=== PATIENT | female | born 1945 | race Caucasian/White ===

== ENCOUNTER 2019-06-25 16:10 | Inpatient (IN) | payer OTHER, SELFPAY ==
[2019-06-16 10:42] VITALS: BP 136/81; PULSE 65; RESP 18; TEMP 36.7; O2SAT 94; BMI 33.4
[2019-06-25] VITALS (13 sets, daily range): BP systolic 127–159; BP diastolic 55–85; PULSE 65–86; RESP 11–18; TEMP 36.3–37; O2SAT 92–99
--- NOTE | ~2019-06-25 | XR_ITS ---
EXAMINATION: XR surgery orthopedic DATE: 06/25/2019 16:17 INDICATION: Intraoperative evaluation during right total hip arthroplasty TECHNIQUE: Frontal view of the right hip was obtained. COMPARISON: None. FINDINGS: Intraoperative image during a right total hip arthroplasty demonstrate placement of an acetabular com ponent affixed with at least 2 screws which appears in near anatomic alignment on the single image pr ovided. A femoral broach is in place with the proximal tip centered over the acetabular component. P ortions of the pelvis are obscured by a bolster. No fractures in the visualized bones. Expected gas a t the operative bed. IMPRESSION: 1. Expected appearance during right total hip arthroplasty. Reviewed, dictated and finalized at location A. OYMENT SUPERVISOR
--- NOTE | ~2019-06-25 | XR_ITS ---
EXAMINATION: XR hip RT min 2V DATE: 06/25/2019 16:16 INDICATION: Postoperative evaluation following right total hip arthroplasty TECHNIQUE: Anteroposterior and lateral views of the right hip were obtained. COMPARISON: Intraoperative radiograph dated 06/25/2019 at 1:32 PM FINDINGS: Interval completion of the noncemented right total hip arthroplasty which appears well seated in near anatomic alignment. Expected subcutaneous gas in the postoperative bed. No fractures identified. IMPRESSION: 1. Right total hip arthroplasty, negative for postoperative purposes. Reviewed, dictated and finalized at location A. STICS OFFICER
--- NOTE | 2019-06-25 10:25 | WPDANESEPPF ---
Anes - Initial Pre Proc Eval Procedure: Operation Date: 06/25/19 12:00 Proposed Procedures p Right Total Hip Arthroplasty - Phillip Mcmillan MD Date/Time: 06/25/19 10:25 Surgeon: Phillip Mcmillan MD Pre Op Diagnosis: Right Hip OA Patient Data Age: 73 Gender: F Height: 1.7 m Weight: 96.3 kg Last Vital Signs Temp 36.7 C 06/16/19 10:42 Pulse 65 06/16/19 10:42 Resp 18 06/16/19 10:42 BP 136/81 06/16/19 10:42 Pulse Ox 94 06/16/19 10:42 Allergies Allergy/AdvReac Type Severity Reaction Status Date / Time No Known Allergies Allergy Verified 06/25/19 10:06 Home Medications Medication Instructions Recorded Confirmed Type aspirin 81 mg tablet,delayed 81 mg PO DAILY 04/08/19 06/25/19 History release atorvastatin 80 mg tablet 80 mg PO HS 04/08/19 06/25/19 History calcium carbonate 600 mg calcium 600 mg PO BID 04/08/19 06/25/19 History (1,500 mg) tablet carvedilol 3.125 mg tablet 3.125 mg PO Q12H 04/08/19 06/25/19 History clopidogrel 75 mg tablet 75 mg PO DAILY 04/08/19 06/25/19 History lisinopril 10 mg tablet 10 mg PO DAILY 04/08/19 06/25/19 History multivitamin 1 tablet PO DAILY 04/08/19 06/25/19 History omega-3 fatty acids 1,000 mg 1,000 mg PO DAILY 04/08/19 06/25/19 History capsule trazodone 50 mg tablet 75 mg PO HS tablet 04/08/19 06/25/19 History oxybutynin chloride 5 mg tablet 5 mg PO BID #180 tablet 04/28/19 06/25/19 Rx ECG: Date of Service: 06/16/19 Procedure(s): CA 12 lead EKG Accession Number(s): [id number] cc: ~ Measurements Intervals [place] Rate: 64 P: 36 CO: 184 QRS: -11 QRSD: 92 T: 2 QT: 404 QTc: 419 Interpretive Statements SINUS RHYTHM VOLTAGE CRITERIA FOR LVH BORDERLINE R WAVE PROGRESSION, ANTERIOR LEADS INFERIOR INFARCT, AGE INDETERMINATE BASELINE ARTIFACT- I, II, III, AVR, AVL, AVF ABNORMAL ECG Electronically Signed On 06-16-2019 11:26:42 DCS ENGINEER by David Hernandez D.O. Dictated By: David Hernandez DO 06/16/19 1113 Other Studies: 07/2018 echo: nlvsf, ef 68%. mild lvh, diastolic dysfunction. Pulmonary htn, 40 mmHg RVSP Patient hx anesthesia problems: none Family hx anesthesia problems: none PMFSH Past Medical History Medical History (Updated 06/25/19 @ 10:34 by Damien Yanes MD) Current mild episode of major depressive disorder without prior episode Elevated liver enzymes HTN (hypertension) Hypertensive heart disease without heart failure IFG (impaired fasting glucose) Metabolic syndrome Mixed hyperlipidemia Old myocardial infarction 2013. sees dr. kaminski Osteoarthritis of left knee Osteoarthritis of right hip Preoperative clearance Pulmonary HTN RVSP 40 mmHg on 2018 echo Surgical History Surgical History (Updated 06/25/19 @ 10:28 by Damien Yanes MD) History of coronary artery stent placement 2013 1 stent S/P cataract surgery Status post arterial stent Family History Family History (Updated 01/15/14 @ 07:13 by DOCTOR UNKNOWN) Father Hypertension Cerebrovascular accident Mother Family history of coronary artery disease Social History Social History (Updated 04/09/19 @ 09:41 by Stefani Khan) Smoking packs per day: 1 Smoking cigarettes per day: 20.0 Years smoked: 10 Smoking pack-years: 10.00 Smoking status: Former smoker Tobacco type: cigarettes Second hand tobacco smoke exposure: No Smoking end date: 05/21/74 Alcohol intake: current Drinks per week: 14 Substance use: never Substance use type: does not use Gender identity (if verbalized by the patient): Female Anes - Eval Final PreProcedure Day of Procedure 06/25/19 10:25 Patient weight: obese Heart: regular rate and rhythm Lung
[2019-06-25] MEDS: LACTATED RINGERS 1,000 ML 30 ML IV CONT ×2 (10:35→14:45)
--- NOTE | 2019-06-25 11:59 | P.HP_ITS ---
H&P: HPI History of Present Illness Chief complaint: Right Hip OA Narrative: Elyse Colon is a 73 year old female. The patient has long- standing arthritis of her hip. She has failed conservative care and presents now for total hip arthroplasty PMFSH Past Medical History Medical History Current mild episode of major depressive disorder without prior episode Elevated liver enzymes HTN (hypertension) Hypertensive heart disease without heart failure IFG (impaired fasting glucose) Metabolic syndrome Mixed hyperlipidemia Old myocardial infarction 2013. sees dr. kaminski Osteoarthritis of left knee Osteoarthritis of right hip Preoperative clearance Pulmonary HTN RVSP 40 mmHg on 2019 echo Surgical History Surgical History History of coronary artery stent placement 2013 1 stent S/P cataract surgery Status post arterial stent Family History Family History Father Hypertension Cerebrovascular accident Mother Family history of coronary artery disease Social History Social History Smoking packs per day: 1 Smoking cigarettes per day: 20.0 Years smoked: 10 Smoking pack-years: 10.00 Smoking status: Former smoker Tobacco type: cigarettes Second hand tobacco smoke exposure: No Smoking end date: 05/21/74 Alcohol intake: current Drinks per week: 14 Substance use: never Substance use type: does not use Gender identity (if verbalized by the patient): Female Comments The patient has severe degenerative wrist. She has failed conservative care. She presents now for shoulder arthroplasty. Risks benefits and limitations of teres were discussed. The patient understood and wished to proceed Meds Home Medications and Allergies Home Medications Medication Instructions Recorded Confirmed Type aspirin 81 mg tablet,delayed 81 mg PO DAILY 04/08/19 06/25/19 History release atorvastatin 80 mg tablet 80 mg PO HS 04/08/19 06/25/19 History calcium carbonate 600 mg calcium 600 mg PO BID 04/08/19 06/25/19 History (1,500 mg) tablet carvedilol 3.125 mg tablet 3.125 mg PO Q12H 04/08/19 06/25/19 History clopidogrel 75 mg tablet 75 mg PO DAILY 04/08/19 06/25/19 History lisinopril 10 mg tablet 10 mg PO DAILY 04/08/19 06/25/19 History multivitamin 1 tablet PO DAILY 04/08/19 06/25/19 History omega-3 fatty acids 1,000 mg 1,000 mg PO DAILY 04/08/19 06/25/19 History capsule trazodone 50 mg tablet 75 mg PO HS tablet 04/08/19 06/25/19 History oxybutynin chloride 5 mg tablet 5 mg PO BID #180 tablet 04/28/19 06/25/19 Rx Allergies Allergy/AdvReac Type Severity Reaction Status Date / Time No Known Allergies Allergy Verified 06/25/19 10:06 Vital Signs Vital Signs - 24 hr 06/25/19 11:25 Temperature 36.3 C L Pulse Rate 70 Respiratory Rate 16 Blood Pressure 145/63 H Pulse Oximetry 95
--- NOTE | 2019-06-25 12:04 | WPDHPUPDATE1 ---
History and Physical Update Update Date/Time: 06/25/19 12:04 History and Physical has been reviewed, including an updated exam of the patient. There are NO changes in the patient's condition. Risks, benefits, and alternatives have been discussed and questions answered. Patient agrees to proceed with procedure.
--- NOTE | 2019-06-25 12:13 | WPDHPUPDATE1 ---
History and Physical Update Update Date/Time: 06/25/19 12:13 History and Physical has been reviewed, including an updated exam of the patient. There are NO changes in the patient's condition. Risks, benefits, and alternatives have been discussed and questions answered. Patient agrees to proceed with procedure.
--- NOTE | 2019-06-25 12:14 | P.HP_ITS ---
H&P: HPI History of Present Illness Chief complaint: Right Hip OA Narrative: Elyse Colon is a 73 year old female [facility] Past Medical History Medical History (Updated 07/31/19 @ 10:38 by Phillip Mcmillan MD) Current mild episode of major depressive disorder without prior episode Elevated liver enzymes HTN (hypertension) Hypertensive heart disease without heart failure IFG (impaired fasting glucose) Metabolic syndrome Mixed hyperlipidemia Old myocardial infarction 2013. sees dr. kaminski Osteoarthritis of left knee Osteoarthritis of right hip Preoperative clearance Pulmonary HTN RVSP 40 mmHg on 2019 echo Surgical History Surgical History (Updated 07/30/19 @ 11:59 by Albert Brooks PA-C) History of coronary artery stent placement 2013 1 stent History of total right hip arthroplasty S/P cataract surgery Status post arterial stent Family History Family History Father Hypertension Cerebrovascular accident Mother Family history of coronary artery disease Social History Social History Smoking packs per day: 1 Smoking cigarettes per day: 20.0 Years smoked: 10 Smoking pack-years: 10.00 Smoking status: Former smoker Tobacco type: cigarettes Second hand tobacco smoke exposure: No Smoking end date: 05/21/74 Alcohol intake: current Drinks per week: 14 Substance use: never Substance use type: does not use Gender identity (if verbalized by the patient): Female Spiritual care concerns: No Agree to blood products: Yes Meds Home Medications and Allergies Home Medications Medication Instructions Recorded Confirmed Type atorvastatin 80 mg tablet 80 mg PO HS 04/08/19 06/25/19 History calcium carbonate 600 mg calcium 600 mg PO BID 04/08/19 06/25/19 History (1,500 mg) tablet carvedilol 3.125 mg tablet 3.125 mg PO Q12H 04/08/19 06/25/19 History lisinopril 10 mg tablet 10 mg PO DAILY 04/08/19 06/25/19 History multivitamin 1 tablet PO DAILY 04/08/19 06/25/19 History omega-3 fatty acids 1,000 mg 1,000 mg PO DAILY 04/08/19 06/25/19 History capsule trazodone 50 mg tablet 75 mg PO HS tablet 04/08/19 06/25/19 History docusate sodium 100 mg PO BID #28 cap 06/27/19 Rx hydrocodone-acetaminophen 2 tab PO Q6H PRN #60 tablet 06/27/19 Rx rivaroxaban [Xarelto] 10 mg PO DAILY@1700 #28 tablet 06/27/19 Rx oxybutynin chloride 5 mg tablet 5 mg PO BID #180 tablet 07/25/19 Rx Allergies Allergy/AdvReac Type Severity Reaction Status Date / Time No Known Allergies Allergy Verified 06/25/19 10:06 Vital Signs Vital Signs - 24 hr 06/25/19 11:25 Temperature 36.3 C L Pulse Rate 70 Respiratory Rate 16 Blood Pressure 145/63 H Pulse Oximetry 95
--- NOTE | 2019-06-25 12:16 | WPDHPUPDATE1 ---
History and Physical Update Update Date/Time: 06/25/19 12:16 History and Physical has been reviewed, including an updated exam of the patient. There are NO changes in the patient's condition. Risks, benefits, and alternatives have been discussed and questions answered. Patient agrees to proceed with procedure. The patient had a severe degenerative arthritis of her hip. She has failed conservative care. She presents now for right total hip arthroplasty.
[2019-06-25] MEDS: ceFAZolin 2 GM/D5W 50 ML 2 GM/50 ML BAG IVPB (12:24)
[2019-06-25] MEDS: ceFAZolin SODIUM 1 GM VIAL IV PUSH (14:09)
--- NOTE | 2019-06-25 14:31 | PM.PROC ---
Procedure Note - Detailed Date of procedure: 06/25/19 Pre-op diagnosis: Right Hip OA Post-op diagnosis: same Procedure performed: brittany Anesthesia: GETA Surgeon: Phillip Mcmillan MD
--- NOTE | 2019-06-25 14:32 | P.OP_ITS ---
Procedure Note - Detailed Date of procedure: 06/25/19 Pre-op diagnosis: Right Hip OA Post-op diagnosis: same Procedure performed: brittany Description of procedure: Patient was brought to the operating room placed supine on the operating table. She had a general anesthetic per Anesthesia. She was placed the lateral decubitus position. An axillary roll was placed. The hip and leg were prepped and draped in usual sterile fashion. after skin in cision cautery used to dissect down to the fascia. fascia was divided in line with the incision. External rotators were taken off the femur and tagged. Capsule was divided and tagged hip was dislocated. A femoral neck osteotomy was performed. The acetabular labrum was excised. The acetabulum was reamed up to a size 55 and a size 56 shell inserted and 2 screws placed. The femur was broached up to 11. With a -3 head there was good leg length and good stability to flexion ad duction and internal rotation as well as extension and external rotation. trial components removed final components assembled with good leg length and good stability. The wound was irrigated copious amounts of sterile saline containing bacitracin antibiotics. The capsule was repaired with 5. Ethibond suture. External rotators were too short for repair. Fascia closed with 2. Vicryl and Quill. Subcutaneous tissues closed with Vicryl followed by a Mepilex and glue. Abduction pillow was applied. The patient was awakened and transported to postop recovery unit. Anesthesia: JULIOA Surgeon: Phillip Mcmillan MD Estimated blood loss (mL): 400 Drains: No Packing: No Pathology: none sent Complications: No immediate complications Condition: stable Disposition: PACU
--- NOTE | 2019-06-25 16:50 | ADMGEN ---
This patient, Elyse Colon, was admitted to 3 [facility] Surg Room 325-01 @ 4048. Patient/family oriented to hospital policies and general routines including ID bracelet, bed and alarms, visiting hours, pain management, procedures, bathroom and other care routines, personal items, smoking policy, room service/diet, and visiting hours. Valuables list has been completed. Information on how to activate the Rapid Response Team has been discussed. Patient/Family are encouraged to report perceived risks to care and to ask questions if they do not understand what they are told or what they should do.
[2019-06-25 17:10] LABS: Hematocrit 45.2 % (37.0-47.0); Hemoglobin 15.2 g/dL (12.0-15.0)
[2019-06-25] MEDS: CALCIUM CARBONATE (OSCAL) 500 MG TABLET PO (17:58)
[2019-06-25] MEDS: OXYBUTYNIN CHLORIDE 5 MG TABLET PO (17:58)
[2019-06-25] MEDS: DOCUSATE SODIUM 100 MG CAPSULE PO (17:58)
[2019-06-25] MEDS: MORPHINE SULFATE 2 MG/ML INJ IV PUSH (17:59)
[2019-06-25] MEDS: TRAZODONE HCL 50 MG TABLET PO (20:08)
[2019-06-25] MEDS: carvediloL 3.125 MG TABLET PO (20:08)
[2019-06-25] MEDS: ATORVASTATIN 40 MG TABLET 80 MG PO (20:08)
--- NOTE | 2019-06-25 23:42 | PM.IMCN ---
Assessment and Plan Assessment and plan (1) History of total right hip arthroplasty: Code(s): Z96.641 - Presence of right artificial hip joint Status: Acute Assessment and Plan: Continue ortho recommendations. (2) Alcoholism: Code(s): F10.20 - Alcohol dependence, uncomplicated Status: Acute Assessment and Plan: CIWA-AR protocol. Ativan IV prophylaxis PRN. (3) HTN (hypertension): Code(s): I10 - Essential (primary) hypertension Status: Acute Assessment and Plan: Monitor blood pressure. Continue coreg PO. (4) Mixed hyperlipidemia: Code(s): E78.2 - Mixed hyperlipidemia Status: Acute Assessment and Plan: Continue atorvastatin. (5) CAD (coronary artery disease): Code(s): I25.10 - Atherosclerotic heart disease of [place] coronary artery without angina pectoris Status: Acute Assessment and Plan: stable. no chest pain tonight. Continue plavix, ASA HPI Data of Consult Consult date: 06/26/19 Requesting Physician: Phillip Mcmillan MD Primary Care Provider: Shashank Allen MD Consult Narrative Narrative: This is a 73 year old obese female with known chronic HTN, CAD s/p [place] s/p #1 stent, hyperlipidemia, and prediabetes who is s/p right total hip arthroplasty secondary to osteoarthritis. The patient's pain is controlled although she is complaining of having a hard time sleeping tonight. She denies any fevers, chills, chest pain, [place], vomiitng, diarrhea, dysuria, hematuria, rectal bleeding or focal neurological symptoms. She denies any diaphoresis, shakiness, or tremors tonight. She is known to drink >1 bottle of wine daily which she tells me she has been doing since her . Her last drink was on Jun 19, 2019. She does admit that she feels a bit anxious tonight. No other complaints. Review of Systems Review of Systems: All systems reviewed & are unremarkable except as noted in HPI and below PMFSH Past Medical History Medical History Current mild episode of major depressive disorder without prior episode Elevated liver enzymes HTN (hypertension) Hypertensive heart disease without heart failure IFG (impaired fasting glucose) Metabolic syndrome Mixed hyperlipidemia Old myocardial infarction 2013. sees dr. yamilex Osteoarthritis of left knee Osteoarthritis of right hip Preoperative clearance Pulmonary HTN RVSP 40 mmHg on 2019 echo Surgical History Surgical History History of coronary artery stent placement 2013 1 stent S/P cataract surgery Status post arterial stent Family History Family History Father Hypertension Cerebrovascular accident Mother Family history of coronary artery disease Social History Social History Smoking packs per day: 1 Smoking cigarettes per day: 20.0 Years smoked: 10 Smoking pack-years: 10.00 Smoking status: Former smoker Tobacco type: cigarettes Second hand tobacco smoke exposure: No Smoking end date: 05/21/74 Alcohol intake: current Drinks per week: 14 Substance use: never Substance use type: does not use Gender identity (if verbalized by the patient): Female Spiritual care concerns: No Agree to blood products: Yes Meds Home Medications and Allergies Home Medications Medication Instructions Recorded Confirmed Type aspirin 81 mg tablet,delayed 81 mg PO DAILY 04/08/19 06/25/19 History release atorvastatin 80 mg tablet 80 mg PO HS 04/08/19 06/25/19 History calcium carbonate 600 mg calcium 600 mg PO BID 04/08/19 06/25/19 History (1,500 mg) tablet carvedilol 3.125 mg tablet 3.125 mg PO Q12H 04/08/19 06/25/19 History clopidogrel 75 mg tablet 75 mg PO DAILY 04/08/19 06/25/19 History lisinopril 10 mg tablet 10 mg PO D
[2019-06-26] VITALS (9 sets, daily range): BP systolic 100–122; BP diastolic 54–67; PULSE 74–92; RESP 14–18; TEMP 36.2–38.3; O2SAT 91–99; BMI 38.7
[2019-06-26] MEDS: LORAZEPAM INJ 2 MG/ML VIAL 0.5 MG IV PUSH (00:04)
[2019-06-26 05:37] LABS: Glucose Point of Care 128 (65-105)
[2019-06-26 07:08] LABS: Basophils Percent Auto 0.4 % (0.2-1.2); Blood Urea Nitrogen 10 mg/dL (7-17); Calcium 8.6 mg/dL (8.4-10.2); Carbon Dioxide 26 mmol/L (22-30); Chloride 101 mmol/L (98-107); Eosinophils Percent Auto 0.1 % (0-4.4); Estimated CRCL calculation 125 ml/min; Estimated Glomerular Filt Rate > 60; Glucose 119 mg/dL (65-105); Hemoglobin 13.4 g/dL (12.0-15.0); Immature Granulocyte Absolute 0.05 K/mm3 (0.00-0.031); Immature Granulocyte Percent A 0.5 % (0-0.5); Lymphocytes Percent Auto 10.5 % (18.3-44.2); Mean Corpuscular HGB Conc 33.5 g/dl (32-36); Mean Corpuscular Hemoglobin 31.8 pg (26-34); Mean Platelet Volume 9.9 fl (7.4-10.4); Monocytes Absolute Auto 1.3 K/mm3 (0.1-0.6); Neutrophils Percent Auto 76.5 % (45.5-73.1); Platelet Count Result 285 k/mm3 (150-375); Potassium 3.6 mmol/L (3.4-5.0); Red Blood Count 4.21 M/mm3 (4.2-5.4); Sodium 134 mmol/L (137-145); White Blood Count 10.5 K/mm3 (4.5-10.0)
[2019-06-26] MEDS: CALCIUM CARBONATE (OSCAL) 500 MG TABLET PO ×2 (09:33→16:37)
[2019-06-26] MEDS: OXYBUTYNIN CHLORIDE 5 MG TABLET PO ×2 (09:33→16:37)
[2019-06-26] MEDS: DOCUSATE SODIUM 100 MG CAPSULE PO ×2 (09:33→16:37)
[2019-06-26] MEDS: carvediloL 3.125 MG TABLET PO ×2 (09:34→20:29)
[2019-06-26] MEDS: lisinopriL 10 MG TABLET PO (09:34)
[2019-06-26] MEDS: THIAMINE HCL 200 MG/2 ML VIAL 100 MG IV PUSH (09:34)
--- NOTE | 2019-06-26 11:28 | PM.PNORT ---
Progress Note: A&P Additional Plan Prob D/C tomorrow Subjective Subjective Date/Time Seen: 06/26/19 11:28 C/O pain Exam Extrem: Right lower extremity: hip/thigh (wound C/D/I DNVI) Objective Data Vital Signs Vital Signs: Vital Signs - 24 hr 06/25/19 14:45 06/25/19 15:00 06/25/19 15:15 Temperature 36.9 C Pulse Rate 75 71 73 Pulse Rate [Right Pedal (Dorsalis Pedis)] Respiratory Rate 14 12 11 L Blood Pressure 145/80 H 148/72 H 154/82 H Pulse Oximetry 99 95 99 06/25/19 15:30 06/25/19 15:45 06/25/19 16:00 Temperature Pulse Rate 72 72 65 Pulse Rate [Right Pedal (Dorsalis Pedis)] Respiratory Rate 15 17 15 Blood Pressure 148/83 H 159/85 H 149/81 H Pulse Oximetry 95 97 95 06/25/19 16:45 06/25/19 17:00 06/25/19 17:30 Temperature Pulse Rate 77 71 70 Pulse Rate [Right Pedal (Dorsalis Pedis)] Respiratory Rate 18 16 16 Blood Pressure 143/63 H 134/67 131/60 Pulse Oximetry 94 93 94 06/25/19 18:30 06/25/19 20:08 06/25/19 21:47 Temperature 36.6 C 37.0 C Pulse Rate 68 86 84 Pulse Rate [Right Pedal (Dorsalis Pedis)] Respiratory Rate 16 18 Blood Pressure 130/68 127/55 L Pulse Oximetry 96 92 06/26/19 00:00 06/26/19 02:00 06/26/19 04:00 Temperature 36.9 C Pulse Rate 77 Pulse Rate [Right Pedal (Dorsalis Pedis)] 84 74 Respiratory Rate 18 Blood Pressure 115/66 Pulse Oximetry 91 06/26/19 06:00 06/26/19 09:34 Temperature 37.1 C Pulse Rate 84 86 Pulse Rate [Right Pedal (Dorsalis Pedis)] Respiratory Rate 18 Blood Pressure 119/67 Pulse Oximetry 93 Intake/Output Intake/Output: Intake & Output 06/23/19 06/24/19 06/25/19 06/26/19 23:59 23:59 23:59 23:59 Intake Total 2400 1130 Balance 2400 1130 Meds/Results Medications: Active Medications Generic Name Dose Route Start Last Admin Trade Name Freq PRN Reason Stop Dose Admin Acetaminophen 650 mg 06/25/19 16:46 Tylenol Tablet PO Q6H PRN Mild Pain (1-3) or Fever Hydrocodone Bitart/Acetaminophen 1 tab 06/25/19 16:46 06/25/19 20:07 [place] 5-325 Mg PO 1 tab Q3H PRN Administration Pain Rated 4-6 Hydrocodone Bitart/Acetaminophen 1 tab 06/25/19 16:46 06/25/19 23:39 [place] 7.5-325 Mg PO 1 tab Q3H PRN Administration Pain Rated 4-6 Hydrocodone Bitart/Acetaminophen 2 tab 06/25/19 16:46 06/26/19 11:13 [place] 7.5-325 Mg PO 2 tab Q6H PRN Administration Pain Rated 7-10 Hydrocodone Bitart/Acetaminophen 2 tab 06/25/19 16:46 [place] 5-325 Mg PO Q6H PRN Pain Rated 7-10 Al Hydrox/Mg Hydrox/Simethicone 30 ml 06/25/19 16:46 Mylanta PO Q6H PRN Indigestion Atorvastatin Calcium 80 mg 06/25/19 21:00 06/25/19 20:08 Lipitor PO 80 mg HS NATALI Administration Bisacodyl 10 mg 06/25/19 16:46 Dulcolax Suppository RECTAL DAILY PRN Constipation Calcium Carbonate 500 mg 06/25/19 17:00 06/26/19 09:33 Oscal 500 Mg PO 500 mg BID NATALI Administration Carvedilol 3.125 mg 06/25/19 21:00 06/26/19 09:34 Coreg PO 3.125 mg Q12HR NATALI Administration Cyclobenzaprine HCl 10 mg 06/25/19 16:46 Flexeril PO Q8H PRN Muscle Spasm Docusate Sodium 100 mg 06/25/19 17:00 06/26/19 09:33 Colace Capsule PO 100 mg BID NATALI Administration Hydroxyzine HCl 50 mg 06/25/19 16:46 Atarax Tablet PO Q4H PRN Itching Cefazolin Sodium 1 gm in 50 mls @ 100 mls/hr 06/25/19 20:30 06/26/19 04:44 Ancef 1 Gm/D5w 50 Ml Pm IVPB 06/26/19 12:59 100 mls/hr Q8H NATALI Administration Vancomycin HCl 1,000 mg in 250 mls @ 250 mls/hr 06/25/19 23:00 06/26/19 11:14 Vancomycin 1,000 Mg/D5w 250 Ml IVPB 06/26/19 11:59 250 mls/hr Q12H NATALI Administration Lisinopril 10 mg 06/26/19 09:00 06/26/19 09:34 Prinivil PO 10 mg DAILY NATALI Administration Lorazepam 1 mg 06/25/19 23:47 Ativan Inj IV PUSH Q4H PRN Withdrawal Magnesium Hydroxide 30 ml 06/25/19 16:46 Mi
[2019-06-26 12:56] LABS: Glucose Point of Care 121 (65-105)
--- NOTE | 2019-06-26 13:16 | WPDANESPN ---
Anes - Prog Note Post-Op Date/Time: 06/26/19 13:16 Cardiovascular status: normal Respiratory status: normal Airway patency: baseline Mental status: baseline Post-Op hydration status: normal Vital Signs: Last Vital Signs Temp 37.1 C 06/26/19 06:00 Pulse 86 06/26/19 09:34 Resp 18 06/26/19 06:00 BP 119/67 06/26/19 06:00 Pulse Ox 93 06/26/19 06:00 I/O: Intake & Output 06/25/19 06/26/19 06/26/19 23:59 07:59 15:59 Intake Total 1250 700 730 Balance 1250 700 730 Laboratory Tests 06/26/19 06:35 06/26/19 06:35 06/25/19 06/26/19 06/26/19 17:03 05:33 06:35 WBC 10.5 H RBC 4.21 Hgb 15.2 H 13.4 Hct 45.2 40.0 MCV 95.0 MCH 31.8 MCHC 33.5 RDW 13.0 Plt Count 285 MPV 9.9 Immature Gran % (Auto) 0.5 Neut % (Auto) 76.5 H Lymph % (Auto) 10.5 L [place] % (Auto) 12.0 H Eos % (Auto) 0.1 Baso % (Auto) 0.4 Lymph # (Auto) 1.10 [place] # (Auto) 1.3 H Eos # (Auto) 0.0 Baso # (Auto) 0.0 Abs Immat Gran (auto) 0.05 H Absolute Neuts (auto) 8.0 H Absolute Nucleated RBC 0.0 Nucleated RBC % 0.0 Sodium Potassium Chloride Carbon Dioxide BUN Creatinine Estim Creat Clear Calc Estimated GFR Glucose POC Capillary Glucose 128 H Calcium 06/26/19 06/26/19 06:35 12:52 WBC RBC Hgb Hct MCV MCH MCHC RDW Plt Count MPV Immature Gran % (Auto) Neut % (Auto) Lymph % (Auto) [place] % (Auto) Eos % (Auto) Baso % (Auto) Lymph # (Auto) [place] # (Auto) Eos # (Auto) Baso # (Auto) Abs Immat Gran (auto) Absolute Neuts (auto) Absolute Nucleated RBC Nucleated RBC % Sodium 134 L Potassium 3.6 Chloride 101 Carbon Dioxide 26 BUN 10 Creatinine 0.40 L Estim Creat Clear Calc 125 Estimated GFR > 60 Glucose 119 H POC Capillary Glucose 121 H Calcium 8.6 Post-procedural complaints: none Patient Feedback: Patient satisfied with anesthetic care.
--- NOTE | 2019-06-26 14:41 | PM.IMPN ---
Progress Note: A&P Assessment and Plan (1) History of total right hip arthroplasty: Code(s): Z96.641 - Presence of right artificial hip joint Status: Acute Assessment and Plan: Sp right hip arthroplasty, post op day 1 Continue pain control and PT/OT in the hospital Pt is under Dr Mcmillan Hopeful discharge tommorow, home with physical theraphy at home. Xarelto started for anticoagulation. (2) Alcoholism: Code(s): F10.20 - Alcohol dependence, uncomplicated Status: Acute Assessment and Plan: CIWA-AR protocol. Ativan IV PRN History of alcholol use daily, no tremors or hallucinations mentioned today (3) HTN (hypertension): Code(s): I10 - Essential (primary) hypertension Status: Chronic Assessment and Plan: Bp is chronic and stable, 100/56, Continue coreg For Bp control. (4) Mixed hyperlipidemia: Code(s): E78.2 - Mixed hyperlipidemia Status: Chronic Assessment and Plan: Continue atorvastatin, which is a home medication (5) CAD (coronary artery disease): Code(s): I25.10 - Atherosclerotic heart disease of [place] coronary artery without angina pectoris Status: Chronic Assessment and Plan: CAD is chronic and stable. Continue plavix, ASA Subjective Date/time seen: 06/26/19 14:41 Interval history: Elyse Colon is a 73 year old female, post op day 1 total right hip arthroplasty. Pt still in pain, but is trying to ambulate slowly with PT today. Pt has a history of htn, Bp is stable at 119/67. Pt states she likes to drink one bottle of wine a day. Pt denies any shakes or hallucinations today. Pt seen by DR Mcmillan orthopedics, pt hopefully to be discharged home tomorrow, with home physical theraphy. Pt lives alone she lives, in [place], pt already got her home set up for when she comes home. Review of Systems Review of Systems: All systems reviewed & are unremarkable except as noted in HPI and below Cardiovascular: Cardiovascular: Denies no additional cardiovascular complaints Respiratory: Respiratory: Denies no additional respiratory complaints Gastrointestinal: Gastrointestinal: Denies no additional gastrointestinal complaints Musculoskeletal: Comments: Right hip pain Neurologic: Denies Abnormal speech present, Reports abnormal gait, Denies confusion, Denies headache(s) and Denies numbness Psychiatric: Psychiatric: Denies no additional psychiatric complaints Exam Const: General: cooperative and healthy appearing; No in distress Nutritional Appearance: overweight Orientation/consciousness: oriented to person HENMT: Head: normal to inspection Resp: Effort & Inspection: no respiratory distress Auscultation: no rhonchi and no wheezes Cardio: Rate: regular rate Rhythm: regular rhythm GI: Inspection: normal to inspection GI Palp: No abdominal tenderness, No Guarding due to palpation present (GI) and No Hepatomegaly present Auscultation: normal bowel sounds Neuro: General: oriented to person Extrem: Other: R hip with occlusive dressing, no bilateral calf tenderness Psych: Appearance: grossly normal Other: No tremors or hallucinations Objective Data Vital Signs Vital Signs: Vital Signs - 24 hr 06/25/19 14:45 06/25/19 15:00 06/25/19 15:15 Temperature 36.9 C Pulse Rate 75 71 73 Pulse Rate [Right Pedal (Dorsalis Pedis)] Respiratory Rate 14 12 11 L Blood Pressure 145/80 H 148/72 H 154/82 H Pulse Oximetry 99 95 99 06/25/19 15:30 06/25/19 15:45 06/25/19 16:00 Temperature Pulse Rate 72 72 65 Pulse Rate [Right Pedal (Dorsalis Pedis)] Respiratory Rate 15 17 15 Blood Pressure 148/83 H 159/85 H 149/81 H Pulse Oximetry 95 97 95 06/25/19 16:45 06/25/19 17:00 06/25/19 17:30 Temperature Pulse Rate 77 71 70 Pulse Rate [Right Pedal (Dorsalis Pedis)] Respiratory Rate 18 16 16 Blood Pressure 143/63 H 134/67 131/60 Pulse Oximetry 94 93 94 06/25/19 18:30 06/25/19 20:08 06/25/19 21:
[2019-06-26] MEDS: RIVAROXABAN 10 MG TABLET PO (15:15)
[2019-06-26 18:23] LABS: Glucose Point of Care 114 (65-105)
[2019-06-26] MEDS: ATORVASTATIN 40 MG TABLET 80 MG PO (20:29)
[2019-06-26] MEDS: TRAZODONE HCL 50 MG TABLET PO (20:29)
[2019-06-27] VITALS: PULSE 84
[2019-06-27 05:47] LABS: Glucose Point of Care 118 (65-105)
[2019-06-27 05:51] VITALS: BP 131/48; PULSE 91; RESP 16; TEMP 37.4; O2SAT 90
[2019-06-27 08:14] LABS: Hematocrit 40.6 % (37.0-47.0); Hemoglobin 13.9 g/dL (12.0-15.0); Mean Corpuscular HGB Conc 34.2 g/dl (32-36); Mean Corpuscular Hemoglobin 32.6 pg (26-34); Mean Corpuscular Volume 95.1 fl (80-100); Mean Platelet Volume 9.7 fl (7.4-10.4); Platelet Count Result 295 k/mm3 (150-375); Red Blood Count 4.27 M/mm3 (4.2-5.4); Red Cell Distribution Width 13.2 % (11.5-14.5); White Blood Count 10.9 K/mm3 (4.5-10.0)
[2019-06-27] MEDS: DOCUSATE SODIUM 100 MG CAPSULE PO (09:06)
[2019-06-27] MEDS: CALCIUM CARBONATE (OSCAL) 500 MG TABLET PO (09:06)
[2019-06-27] MEDS: carvediloL 3.125 MG TABLET PO (09:06)
[2019-06-27] MEDS: lisinopriL 10 MG TABLET PO (09:07)
[2019-06-27] MEDS: OXYBUTYNIN CHLORIDE 5 MG TABLET PO (09:07)
[2019-06-27] MEDS: THIAMINE HCL 200 MG/2 ML VIAL 100 MG IV PUSH (09:08)
--- NOTE | 2019-06-27 11:04 | PM.IMPN ---
Progress Note: A&P Assessment and Plan (1) History of total right hip arthroplasty: Code(s): Z96.641 - Presence of right artificial hip joint Status: Acute Assessment and Plan: -----Sp right hip arthroplasty, post op day 2 and doing well. Patient has been working with physical therapy and plans to continue this at home. Okay to discharge from medical standpoint. She did have a postop fever last night. No infection suspected at this time. (2) Alcoholism: Code(s): F10.20 - Alcohol dependence, uncomplicated Status: Acute Assessment and Plan: ------last CIWA 0. No signs or symptoms of withdrawal noted (3) HTN (hypertension): Code(s): I10 - Essential (primary) hypertension Status: Chronic Assessment and Plan: ------last blood pressure 131/48. Continue coreg For Bp control. (4) Mixed hyperlipidemia: Code(s): E78.2 - Mixed hyperlipidemia Status: Chronic Assessment and Plan: -----continue medications (5) CAD (coronary artery disease): Code(s): I25.10 - Atherosclerotic heart disease of [place] coronary artery without angina pectoris Status: Chronic Assessment and Plan: -------CAD is chronic and stable. Continue plavix, ASA Time Spent With Patient Time with patient: 25 - 35 minutes Subjective Date/time seen: 06/27/19 11:04 Interval history: Pt is a 73-year-old female for elective right hip arthroplasty. Patient was seen today and states while sitting her pain is 0/10. She said she worked with therapy today and did have some mild pain but overall feeling much better than yesterday. She states she is not having any hallucinations or tremors that she has noticed. She has been eating and drinking okay but has not had a bowel movement. She has laxatives at home that she can use for that. She denies chest pain, shortness of breath, fevers today, abdominal pain, or cough. Review of Systems Review of Systems: All systems reviewed & are unremarkable except as noted in HPI and below Exam Narrative: Exam Narrative: General: Well developed well nourished patient resting comfortably in bed in NAD HEENT: normocephalic Neck: supple Neuro: Alert and oriented x4. No tremor noted CV:RRR Resp:CTA Abd: Soft, non distended. No pain to palpation. Positive bowel sounds Extremities: Right hip bandage examined without excessive discharge, erythema, or bleeding. Sensation intact. Negative Homans sign Objective Data Vital Signs Vital Signs: Vital Signs - 24 hr 06/26/19 14:00 06/26/19 20:00 06/26/19 20:29 Temperature 97.1 F L Pulse Rate 80 88 Pulse Rate [Right Pedal (Dorsalis Pedis)] 88 Respiratory Rate 14 Blood Pressure 100/56 L Pulse Oximetry 99 06/26/19 22:00 06/27/19 00:00 06/27/19 05:51 Temperature 101 F H 99.4 F Pulse Rate 92 91 Pulse Rate [Right Pedal (Dorsalis Pedis)] 84 Respiratory Rate 16 16 Blood Pressure 122/54 L 131/48 L Pulse Oximetry 92 90 Intake/Output Intake/Output: Intake & Output 06/24/19 06/25/19 06/26/19 06/27/19 23:59 23:59 23:59 23:59 Intake Total 2400 1720 790 Output Total 200 900 Balance 2400 1520 -110 Meds/Results Medications: Active Medications Generic Name Dose Route Start Last Admin Trade Name Freq PRN Reason Stop Dose Admin Acetaminophen 650 mg 06/25/19 16:46 Tylenol Tablet PO Q6H PRN Mild Pain (1-3) or Fever Hydrocodone Bitart/Acetaminophen 1 tab 06/25/19 16:46 06/25/19 20:07 [place] 5-325 Mg PO 1 tab Q3H PRN Administration Pain Rated 4-6 Hydrocodone Bitart/Acetaminophen 1 tab 06/25/19 16:46 06/26/19 22:27 [place] 7.5-325 Mg PO 1 tab Q3H PRN Administration Pain Rated 4-6 Hydrocodone Bitart/Acetaminophen 2 tab 06/25/19 16:46 06/26/19 11:13 [place] 7.5-325 Mg PO 2 tab Q6H PRN Administration Pain Rated 7-10 Hydrocodone Bitart/Acetaminophen 2 tab 06/25/19 16:
--- NOTE | 2019-06-27 11:05 | PM.PNORT ---
Progress Note: A&P Additional Plan post KRISTOFER without c/o wound c/d/i dnvi D/C home Subjective Subjective Date/Time Seen: 06/27/19 11:05 Objective Data Vital Signs Vital Signs: Vital Signs - 24 hr 06/26/19 14:00 06/26/19 20:00 06/26/19 20:29 Temperature 36.2 C L Pulse Rate 80 88 Pulse Rate [Right Pedal (Dorsalis Pedis)] 88 Respiratory Rate 14 Blood Pressure 100/56 L Pulse Oximetry 99 06/26/19 22:00 06/27/19 00:00 06/27/19 05:51 Temperature 38.3 C H 37.4 C Pulse Rate 92 91 Pulse Rate [Right Pedal (Dorsalis Pedis)] 84 Respiratory Rate 16 16 Blood Pressure 122/54 L 131/48 L Pulse Oximetry 92 90 Intake/Output Intake/Output: Intake & Output 06/24/19 06/25/19 06/26/19 06/27/19 23:59 23:59 23:59 23:59 Intake Total 2400 1720 790 Output Total 200 900 Balance 2400 1520 -110 Meds/Results Medications: Active Medications Generic Name Dose Route Start Last Admin Trade Name Freq PRN Reason Stop Dose Admin Acetaminophen 650 mg 06/25/19 16:46 Tylenol Tablet PO Q6H PRN Mild Pain (1-3) or Fever Hydrocodone Bitart/Acetaminophen 1 tab 06/25/19 16:46 06/25/19 20:07 [place] 5-325 Mg PO 1 tab Q3H PRN Administration Pain Rated 4-6 Hydrocodone Bitart/Acetaminophen 1 tab 06/25/19 16:46 06/26/19 22:27 [place] 7.5-325 Mg PO 1 tab Q3H PRN Administration Pain Rated 4-6 Hydrocodone Bitart/Acetaminophen 2 tab 06/25/19 16:46 06/26/19 11:13 [place] 7.5-325 Mg PO 2 tab Q6H PRN Administration Pain Rated 7-10 Hydrocodone Bitart/Acetaminophen 2 tab 06/25/19 16:46 [place] 5-325 Mg PO Q6H PRN Pain Rated 7-10 Al Hydrox/Mg Hydrox/Simethicone 30 ml 06/25/19 16:46 Mylanta PO Q6H PRN Indigestion Atorvastatin Calcium 80 mg 06/25/19 21:00 06/26/19 20:29 Lipitor PO 80 mg HS [facility] Administration Bisacodyl 10 mg 06/25/19 16:46 Dulcolax Suppository RECTAL DAILY PRN Constipation Calcium Carbonate 500 mg 06/25/19 17:00 06/27/19 09:06 Oscal 500 Mg PO 500 mg BID [facility] Administration Carvedilol 3.125 mg 06/25/19 21:00 06/27/19 09:06 Coreg PO 3.125 mg Q12HR [facility] Administration Cyclobenzaprine HCl 10 mg 06/25/19 16:46 Flexeril PO Q8H PRN Muscle Spasm Docusate Sodium 100 mg 06/25/19 17:00 06/27/19 09:06 Colace Capsule PO 100 mg BID [facility] Administration Hydroxyzine HCl 50 mg 06/25/19 16:46 Atarax Tablet PO Q4H PRN Itching Lisinopril 10 mg 06/26/19 09:00 06/27/19 09:07 Prinivil PO 10 mg DAILY [facility] Administration Lorazepam 1 mg 06/25/19 23:47 Ativan Inj IV PUSH Q4H PRN Withdrawal Magnesium Hydroxide 30 ml 06/25/19 16:46 Milk Of Magnesia PO BID PRN Constipation Morphine Sulfate 2 mg 06/25/19 16:46 06/25/19 17:59 Morphine Sulfate Inj IV PUSH 2 mg Q3H PRN Administration Pain Rated 7-10 Naloxone HCl 0.1 mg 06/25/19 16:46 Narcan IV PUSH Q2M PRN Opiate Reversal Ondansetron HCl 4 mg 06/25/19 16:46 Zofran Inj IV PUSH Q4H PRN Nausea And Vomiting Oxybutynin Chloride 5 mg 06/25/19 17:00 06/27/19 09:07 Ditropan PO 5 mg BID [facility] Administration Rivaroxaban 10 mg 06/27/19 17:00 Xarelto PO DAILY@1700 [facility] Thiamine HCl 100 mg 06/26/19 09:00 06/27/19 09:08 Thiamine Hcl Inj IV PUSH 100 mg DAILY [facility] Administration Trazodone HCl 50 mg 06/25/19 21:00 06/26/19 20:29 Desyrel PO 50 mg HS [facility] Administration Trazodone HCl 25 mg 06/25/19 21:00 06/26/19 20:29 Desyrel PO 25 mg HS NATALI Administration Radiology Results: ITS Impressions Intraoperative X-Ray 06/25/19 16:34 IMPRESSION: 1. Expected appearance during right total hip arthroplasty. Hip X-Ray 06/25/19 16:36 IMPRESSION: 1. Right total hip arthroplasty, negative for postoperative purposes. Labs Labs: Laboratory Results - last 24
--- NOTE | 2019-07-31 10:31 | PM.DS ---
DS: Diagnosis Admitting Diagnosis Admitting Diagnosis: Unilateral primary osteoarthritis, right hip Discharge Diagnosis (1) Osteoarthritis of right hip: Qualifiers: Osteoarthritis type: primary Qualified Code(s): M16.11 - Unilateral primary osteoarthritis, right hip Code(s): M16.11 - Unilateral primary osteoarthritis, right hip Status: Acute DS: Summary Time Spent with Patient Time attestation: Total time spent providing and/or coordinating discharge services: Discharge Plan Discharge Attending physician on discharge: Phillip Mcmillan Consulting providers: Sari Minaya ; Will Doyle ; Fernnado Goff ; Lissette Robledo Discharging Clinician: Phillip Mcmillan Anticipated Discharge Date/Time: 06/27/19 13:00 Patient Disposition: Home, Self-Care Activity: no shower Diet: as tolerated Wound Care Instructions: keep dressing dry Discharge Instructions: General Medicine Recommendations: -You have been prescribed narcotic pain medication. This pain medication can make you constipated. Utilize [id number] medications to relieve your constipation symptoms. Take only as directed as these medications can be addictive. Do not drive on these medications. -Follow-up with your primary care physician as regularly scheduled Patient Instructions: Antibiotic Form, Pain Management (DC), Total Hip Replacement (DC) Stand Alone Forms: General Discharge Information Follow-up/Referrals: Phillip Mcmillan MD [Physician] - 2 Weeks Discharge Medications: New hydrocodone-acetaminophen 7.5-325 mg Tablet 2 tab PO Q6H PRN (Reason: Pain Rated 7-10) Qty: 60 RF: 0 docusate sodium 100 mg Capsule 100 mg PO BID Qty: 28 RF: 0 Xarelto 10 mg Tablet 10 mg PO DAILY@1700 Qty: 28 RF: 0 Continued carvedilol 3.125 mg tablet 3.125 mg PO Q12H RF: 0 omega-3 fatty acids [Fish Oil Concentrate] 1,000 mg capsule 1,000 mg PO DAILY RF: 0 multivitamin Tablet 1 tablet PO DAILY RF: 0 atorvastatin [Lipitor] 80 mg tablet 80 mg PO HS RF: 0 calcium carbonate [Calcium 600] 600 mg calcium (1,500 mg) tablet 600 mg PO BID RF: 0 lisinopril 10 mg tablet 10 mg PO DAILY RF: 0 trazodone 50 mg tablet 75 mg PO HS RF: 0 Discontinued aspirin 81 mg tablet,delayed release (DR/EC) 81 mg PO DAILY RF: 0 clopidogrel [Plavix] 75 mg tablet 75 mg PO DAILY RF: 0 No Action oxybutynin chloride 5 mg tablet 5 mg PO BID Qty: 180 RF: 2 Date of admission: 06/25/19 16:10 Primary Care Provider: Shashank Allen Admitting Provider: Phillip Mcmillan Discharge Date/Time: 06/27/19 12:25 Attending physician on admission: Phillip Mcmillan Quality VTE Prophylaxis VTE prophylaxis: pharmacologic ordered
--- NOTE | 2019-07-31 10:39 | P.DS_ITS ---
DS: Diagnosis Admitting Diagnosis Admitting Diagnosis: Unilateral primary osteoarthritis, right hip DS: Summary Time Spent with Patient Time attestation: Total time spent providing and/or coordinating discharge ser vices: Discharge Plan Discharge Attending physician on discharge: Phillip Mcmillan Consulting providers: Sari Minaya ; Will Doyle ; Fernando Goff ; Lissette Robledo Discharging Clinician: Phillip Mcmillan Anticipated Discharge Date/Time: 06/27/19 13:00 Patient Disposition: Home, Self-Care Activity: no shower Diet: as tolerated Wound Care Instructions: keep dressing dry Discharge Instructions: General Medicine Recommendations: -You have been prescribed narcotic pain medication. This pain medication can make you constipated. Utilize intb-ogb-cmdgern medications to relieve your constipation symptoms. Take only as directed as these medications can be addictive. Do not drive on these medications. -Follow-up with your primary care physician as regularly scheduled Patient Instructions: Antibiotic Form, Pain Management (DC), Total Hip Replacement (DC) Stand Alone Forms: General Discharge Information Follow-up/Referrals: Phillip Mcmillan MD [Physician] - 2 Weeks Discharge Medications: New hydrocodone-acetaminophen 7.5-325 mg Tablet 2 tab PO Q6H PRN (Reason: Pain Rated 7-10) Qty: 60 RF: 0 docusate sodium 100 mg Capsule 100 mg PO BID Qty: 28 RF: 0 Xarelto 10 mg Tablet 10 mg PO DAILY@1700 Qty: 28 RF: 0 Continued carvedilol 3.125 mg tablet 3.125 mg PO Q12H RF: 0 omega-3 fatty acids [Fish Oil Concentrate] 1,000 mg capsule 1,000 mg PO DAILY RF: 0 multivitamin Tablet 1 tablet PO DAILY RF: 0 atorvastatin [Lipitor] 80 mg tablet 80 mg PO HS RF: 0 calcium carbonate [Calcium 600] 600 mg calcium (1,500 mg) tablet 600 mg PO BID RF: 0 lisinopril 10 mg tablet 10 mg PO DAILY RF: 0 trazodone 50 mg tablet 75 mg PO HS RF: 0 Discontinued aspirin 81 mg tablet,delayed release (DR/EC) 81 mg PO DAILY RF: 0 clopidogrel [Plavix] 75 mg tablet 75 mg PO DAILY RF: 0 No Action oxybutynin chloride 5 mg tablet 5 mg PO BID Qty: 180 RF: 2 Date of admission: 06/25/19 16:10 Primary Care Provider: Shashank Allen Admitting Provider: Phillip Mcmillan Discharge Date/Time: 06/27/19 12:25 Attending physician on admission: Phillip Mcmillan Quality VTE Prophylaxis VTE prophylaxis: pharmacologic ordered
== END 2019-06-27 12:25 | disposition home or self-care (01) | DRG 470 ==
LOC: ANH3MEDSUR 16:46
PROVIDERS: Family Medicine; Admitting Provider Orthopaedic Surgery; PCP Family Medicine; Visit Provider Orthopaedic Surgery
PROC: 0SR902A Replacement of Right Hip Joint with Metal on Polyethylene Synthetic Substitute, Uncemented, Open Approach (ICD-10-PCS; CPT 27130; principal; 2019-06-25 12:00)
DX: M16.11 Unilateral primary osteoarthritis, right hip (principal); M17.12 Unilateral primary osteoarthritis, left knee; I27.20 Pulmonary hypertension, unspecified; E78.2 Mixed hyperlipidemia; F32.9 Major depressive disorder, single episode, unspecified; I10 Essential (primary) hypertension; F10.20 Alcohol dependence, uncomplicated; I25.10 Atherosclerotic heart disease of native coronary artery without angina pectoris; R73.03 Prediabetes; E66.9 Obesity, unspecified; Z87.891 Personal history of nicotine dependence; Z95.5 Presence of coronary angioplasty implant and graft; Z68.38 Body mass index [BMI] 38.0-38.9, adult; I25.2 Old myocardial infarction
CPT/HCPCS: 36415; 73502; 76000; 80048; 85014; 85018; 85025; 85027; 97110; 97116; 97161; 97165; 97530; 97535; A9270; C1776; J0131; J0690; J1100; J2060; J2270; J2405; J2704; J3010; J3370; J3411; J7120

== ENCOUNTER 2019-10-09 15:40 | Outpatient (CLI) | payer OTHER, SELFPAY ==
--- NOTE | ~2019-10-09 | XR_ITS ---
EXAMINATION: XR knee LT 3V DATE: 10/09/2019 16:15 INDICATION: Left knee pain TECHNIQUE: Three views of the left knee were obtained. COMPARISON: 11/13/2018 FINDINGS: There is no fracture. Mild osteoarthritis is again noted in the medial and lateral compartm ents. There is advanced osteoarthritis of the patellofemoral compartment. There is no joint effusion. Calcified loose bodies are again noted in the joint space. Soft tissues are unremarkable. IMPRESSION: 1. Osteoarthritis without acute osseous abnormality. Reviewed, dictated and finalized at location A.
== END 2019-10-09 15:41 | disposition home or self-care (01) ==
PROVIDERS: PCP Family Medicine; Visit Provider Physician Assistant
DX: M17.12 Unilateral primary osteoarthritis, left knee (principal)
CPT/HCPCS: 73562

== ENCOUNTER 2019-10-30 12:30 | Outpatient (CLI) | payer OTHER, SELFPAY ==
[2019-10-30 12:46] LABS: Basophils Absolute Auto 0.1 K/mm3 (0.0-0.1); Basophils Percent Auto 1.1 % (0.2-1.2); Eosinophils Absolute Auto 0.2 K/mm3 (0-0.3); Eosinophils Percent Auto 2.8 % (0-4.4); Hematocrit 45.2 % (37.0-47.0); Hemoglobin 15.3 g/dL (12.0-15.0); Immature Granulocyte Absolute 0.03 K/mm3 (0.00-0.031); Immature Granulocyte Percent A 0.4 % (0-0.5); Lymphocytes Absolute Auto 1.86 K/mm3 (0.9-3.2); Lymphocytes Percent Auto 22.5 % (18.3-44.2); Mean Corpuscular HGB Conc 33.8 g/dl (32-36); Mean Corpuscular Hemoglobin 31.4 pg (26-34); Mean Corpuscular Volume 92.6 fl (80-100); Mean Platelet Volume 9.5 fl (7.4-10.4); Monocytes Absolute Auto 0.6 K/mm3 (0.1-0.6); Monocytes Percent Auto 6.8 % (2.6-8.5); Neutrophils Absolute Auto 5.5 K/mm3 (1.3-6.7); Neutrophils Percent Auto 66.4 % (45.5-73.1); Platelet Count Result 304 k/mm3 (150-375); Red Blood Count 4.88 M/mm3 (4.2-5.4); Red Cell Distribution Width 14.7 % (11.5-14.5); White Blood Count 8.3 K/mm3 (4.5-10.0)
[2019-10-30 12:50] LABS: Blood Urea Nitrogen 13 mg/dL (8-26); Carbon Dioxide 25 mmol/L (22-30); Chloride 101 mmol/L (98-109); Estimated Glomerular Filt Rate > 60; Glucose 105 mg/dL (70-105); Potassium 4.6 mmol/L (3.5-4.9); Sodium 137 mmol/L (138-146)
[2019-10-30 16:43] LABS: Alanine Aminotransferase 17 U/L (4-35); Albumin Level 4.3 g/dL (3.5-5.1); Alkaline Phosphatase 85 U/L (38-126); Aspartate Amino Transferase 23 U/L (14-36); Bilirubin,Total 0.5 mg/dL (0.2-1.3); Blood Urea Nitrogen 15 mg/dL (7-17); Calcium 9.4 mg/dL (8.4-10.2); Carbon Dioxide 26 mmol/L (22-30); Chloride 101 mmol/L (98-107); Estimated Glomerular Filt Rate > 60; Glucose 101 mg/dL (65-105); Potassium 4.8 mmol/L (3.4-5.0); Sodium 134 mmol/L (137-145)
== END 2019-10-30 12:31 | disposition home or self-care (01) ==
PROVIDERS: PCP Family Medicine; Visit Provider Internal Medicine Hematology & Oncology
DX: D75.1 Secondary polycythemia (principal); R06.89 Other abnormalities of breathing
CPT/HCPCS: 36415; 80048; 80053; 85025

== ENCOUNTER 2019-12-03 12:08 | Outpatient (CLI) | payer OTHER, SELFPAY ==
--- NOTE | ~2019-12-03 | XR_ITS ---
XR hip RT min 3V w AP pelvis DATE: 12/03/2019 12:40 INDICATION: Right hip pain TECHNIQUE: AP pelvis. AP, lateral and crosstable lateral views of right hip COMPARISON: 06/25/2019 right hip FINDINGS: Status post right total hip replacement. There is prominent osteoarthritis at the left hip. The pubic symphysis and sacroiliac joints are intact. No pelvic fracture or bone destruction. No frac ture or dislocation is noted at either hip. Degenerative changes at L4-5 and L5-S1. IMPRESSION: Status post right total hip arthroplasty Prominent osteoarthritis at left hip Reviewed, dictated and finalized at location A.
--- NOTE | ~2019-12-03 | XR_ITS ---
XR lumbar spine 2-3V DATE: 12/03/2019 12:40 INDICATION: Right hip pain. No injury. TECHNIQUE: AP, lateral, coned lateral lumbosacral views COMPARISON: 09/25/2017 lumbar spine FINDINGS: Diffuse osteopenia. There is diffuse idiopathic skeletal hyperostosis of the lower thoracic spine. There is approximately 20 degrees rotatory levoscoliosis of the lumbar spine. There is moderate degenerative disc disease at L1-2, L2-3, L4-5 and L5-S1. The L3-4 interspace is rel atively preserved. There is prominent degenerative change of the lumbar apophyseal joints. No fracture or spondylolisthesis is evident. There is no evidence of bone destruction. The lumbar ped icles appear intact. The sacroiliac joints appear normal. Status post right total hip arthroplasty. IMPRESSION: 20 degrees rotatory levoscoliosis of lumbar spine Extensive degenerative changes of the lumbar spine; diffuse idiopathic skeletal hyperostosis of the l ower thoracic spine Right hip arthroplasty Reviewed, dictated and finalized at location A. IMPRESSION: 20 degrees rotatory levoscoliosis of lumbar spine Extensive degenerative changes of the lumbar spine; diffuse idiopathic skeletal hyperostosis of the lower thoracic spine Right hip arthroplasty
[2019-12-03 13:05] LABS: Add Urine Microscopic? YES; Appearance Urine Clear (Clear); Bacteria Urine Trace /hpf; Bilirubin Urine Negative (Negative); Blood Urine Negative (Negative); Color Urine Straw (Yellow); Glucose Urine UA Negative (Negative); Ketones Urine Negative (Negative); Leukocyte Esterase Ur 3+ LEU/UL (NEGATIVE); Mucus Urine Rare /lpf; Nitrate Urine Negative (Negative); Protein Urine Negative (Negative); Specific Grav Ur 1.009 (1.001-1.035); Squamous Epithelial Cell Urine Many /hpf (Few); Transitional Epi Cells Urine Rare /hpf (None Seen); Urobilinogen Urine Negative mg/dL (<2.0); WBC Urine 31-50 /hpf (0-3)
== END 2019-12-03 12:09 | disposition home or self-care (01) ==
LOC: ANHIMG 12:10
PROVIDERS: PCP Family Medicine; Visit Provider Physician Assistant
DX: M25.551 Pain in right hip (principal); M54.5 Low back pain; N32.81 Overactive bladder; M41.86 Other forms of scoliosis, lumbar region; M48.16 Ankylosing hyperostosis [Forestier], lumbar region; Z96.641 Presence of right artificial hip joint; M16.12 Unilateral primary osteoarthritis, left hip
CPT/HCPCS: 72100; 73502; 81001; 87086

== ENCOUNTER 2020-01-23 13:40 | Outpatient (CLI) | payer OTHER, SELFPAY ==
--- NOTE | ~2020-01-23 | MM_ITS ---
EXAMINATION: MM screening patrick BI w danial HISTORY: Screening TECHNIQUE: Craniocaudal and mediolateral oblique 3-D tomosynthesis images were obtained and synthetic 2-D images were generated. CAD analysis was submitted and interpreted. COMPARISON: Comparison to multiple prior studies sequentially, with oldest reviewed study dated 07/2013. BREAST PARENCHYMAL COMPOSITION: There are scattered areas of fibroglandular density. FINDINGS: There is a cluster of nonspecific calcifications in the lower inner quadrant of the right b reast. The left breast is stable without evidence for malignancy. IMPRESSION: 1. Clustered nonspecific right breast calcifications. 2. Magnification views are recommended. BI-RADS Category 0: Incomplete: Needs additional imaging evaluation. Reviewed, dictated and finalized at location A.
== END 2020-01-23 13:41 | disposition home or self-care (01) ==
PROVIDERS: PCP Family Medicine; Visit Provider Physician Assistant
DX: Z12.31 Encounter for screening mammogram for malignant neoplasm of breast (principal); R92.8 Other abnormal and inconclusive findings on diagnostic imaging of breast
CPT/HCPCS: 77063; 77067

== ENCOUNTER 2020-02-24 12:43 | Outpatient (CLI) | payer OTHER, SELFPAY ==
--- NOTE | ~2020-02-24 | MM_ITS ---
EXAMINATION: MM diagnostic mammo unilat RT HISTORY: Right breast calcifications TECHNIQUE: Additional 3-D tomosynthesis images of the right breast were performed and synthetic 2-D i mages were generated. CAD analysis was submitted and interpreted. COMPARISON: 01/23/2020 BREAST PARENCHYMAL COMPOSITION: Breast composed of scattered areas of fibroglandular density FINDINGS: There are clustered indeterminate calcifications in the lower inner quadrant of the right b reast. No suspicious masses or architectural distortion. IMPRESSION: 1. Clustered indeterminate right breast calcifications, lower inner quadrant. BI-RADS CATEGORY 4-SUSPICIOUS ABNORMALITY RECOMMENDATION: Stereotactic right breast biopsy recommended. Reviewed, dictated and finalized at location A.
== END 2020-02-24 12:44 | disposition home or self-care (01) ==
PROVIDERS: PCP Family Medicine; Visit Provider Family Medicine
DX: R92.8 Other abnormal and inconclusive findings on diagnostic imaging of breast (principal)
CPT/HCPCS: 77065

== ENCOUNTER 2020-04-13 12:27 | Outpatient (CLI) | payer OTHER, SELFPAY ==
--- NOTE | ~2020-04-13 | MM_ITS ---
EXAMINATION: MM stereotactic bx RT, MM post biopsy diagnostic RT, MM stereotactic specimen RT, Specim en Radiograph, Tissue Marker Clip Placement, Unilateral Mammogram DATE: 04/13/2020 14:03 (accession [id number]), 04/13/2020 14:05 (accession [id number]), 04/13 14:04 (accession [id number]) INDICATION: Abnormal mammogram: Lower inner quadrant right breast indeterminate clustered microcalcif ications reported on 02/24/2020 diagnostic right digital mammogram. TECHNIQUE AND FINDINGS: The risks and potential benefits of the procedure were discussed with the patient and written informe d consent was obtained. Timeout procedure was performed. The patient was placed in the prone position on the dedicated stereotactic table with the right breast in mediolateral compression, and the area of interest at the lower inner quadrant was localized and targeted utilizing digital imaging with mabel reotaxis. After sterile preparation of the skin, 1% lidocaine was utilized for local anesthesia at the skin pun cture site and 1% lidocaine with epinephrine was utilized for deeper local anesthesia/is about the bi opsy site. A 9G Sound[employer]ly vacuum assisted biopsy needle was advanced to the level of the calcification o f interest from a medial approach utilizing stereotactic guidance and a total of 16 tissue core biops ies were obtained. A specimen radiograph demonstrates that the calcifications of interest are included within the tissue cores. A tissue marker clip was then placed at the biopsy site. A digital mammographic exposure co nfirmed the successful deployment of the biopsy marker. The needle was removed and hemostasis was ac hieved. A sterile bandage was applied. The patient tolerated the procedure well and there is no kailee dence of significant immediate complication. The patient was given verbal as well as written postpro cedural instructions prior to discharge from the department. Tissue cores were submitted to surgical pathology for histologic analysis. A 2-view right unilateral digital mammogram was obtained post procedure, demonstrating the tissue mar ker clip in expected position. IMPRESSION: 1. Successful stereotactic biopsy of lower inner quadrant right breast microcalcifications, followe d by tissue marker clip placement. Please refer to pathology report for histologic analysis. Reviewed, dictated and finalized at Location [facility]. 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 Successful stereotactic biopsy of lower inner quadrant right breast microc alcifications, followed by tissue marker clip placement. Please refer to patho logy report for histologic analysis. IMPRESSION: 1. Successful stereotactic biopsy of lower inner quadrant right breast microc alcifications, followed by tissue marker clip placement. Please refer to patho logy report for histologic analysis.
== END 2020-04-13 12:28 | disposition home or self-care (01) ==
PROVIDERS: PCP Family Medicine; Visit Provider Surgery
DX: R92.0 Mammographic microcalcification found on diagnostic imaging of breast (principal)
CPT/HCPCS: 19081; 77065; 88305; A4648

== ENCOUNTER 2020-10-28 11:12 | Outpatient (CLI) | payer OTHER, SELFPAY ==
[2020-10-28 11:24] LABS: Basophils Percent Auto 0.2 % (0.2-1.2); Eosinophils Percent Auto 0.5 % (0-4.4); Hematocrit 44.2 % (37.0-47.0); Hemoglobin 14.8 g/dL (12.0-15.0); Immature Granulocyte Absolute 0.03 K/mm3 (0.00-0.031); Immature Granulocyte Percent A 0.5 % (0-0.5); Lymphocytes Absolute Auto 1.54 K/mm3 (0.9-3.2); Mean Corpuscular HGB Conc 33.5 g/dl (32-36); Mean Corpuscular Hemoglobin 30.3 pg (26-34); Mean Corpuscular Volume 90.6 fl (80-100); Mean Platelet Volume 9.4 fl (7.4-10.4); Monocytes Absolute Auto 0.5 K/mm3 (0.1-0.6); Monocytes Percent Auto 7.2 % (2.6-8.5); Neutrophils Absolute Auto 4.4 K/mm3 (1.3-6.7); Neutrophils Percent Auto 67.6 % (45.5-73.1); Platelet Count Result 357 k/mm3 (150-375); Red Blood Count 4.88 M/mm3 (4.2-5.4); Red Cell Distribution Width 14.1 % (11.5-14.5); White Blood Count 6.4 K/mm3 (4.5-10.0)
[2020-10-28 11:28] LABS: Blood Urea Nitrogen 15 mg/dL (8-26); Carbon Dioxide 26 mmol/L (22-30); Chloride 103 mmol/L (98-109); Estimated Glomerular Filt Rate > 60; Glucose 120 mg/dL (70-105); Potassium 4.5 mmol/L (3.5-4.9); Sodium 143 mmol/L (138-146)
[2020-10-28 16:40] LABS: Alanine Aminotransferase 20 U/L (4-35); Albumin Level 4.2 g/dL (3.5-5.1); Alkaline Phosphatase 79 U/L (38-126); Anion Gap 10 mmol/L (8-16); Aspartate Amino Transferase 25 U/L (14-36); Bilirubin,Total 0.4 mg/dL (0.2-1.3); Blood Urea Nitrogen 15 mg/dL (7-17); Calcium 10.1 mg/dL (8.4-10.2); Carbon Dioxide 25 mmol/L (22-30); Chloride 107 mmol/L (98-107); Estimated Glomerular Filt Rate > 60; Glucose 118 mg/dL (65-105); Potassium 4.8 mmol/L (3.4-5.0); Sodium 142 mmol/L (137-145)
== END 2020-10-28 11:13 | disposition home or self-care (01) ==
LOC: ANHLAB 11:15
PROVIDERS: PCP Family Medicine; Visit Provider Internal Medicine Hematology & Oncology
DX: D75.1 Secondary polycythemia (principal); R06.89 Other abnormalities of breathing
CPT/HCPCS: 36415; 80048; 80053; 85025

== ENCOUNTER 2020-11-14 19:47 | Emergency (ER) | payer OTHER, SELFPAY ==
[2020-11-14] VITALS (9 sets, daily range): BP systolic 130–156; BP diastolic 87–96; PULSE 72–80; RESP 14–18; TEMP 36.4; O2SAT 93–100
--- NOTE | 2020-11-14 19:52 | ED.EPISTAXIS ---
HPI - Epistaxis General Chief complaint: Epistaxis Stated complaint: nose bleed Time Seen by Provider: 11/14/20 19:49 History of Present Illness HPI Narrative: Nose bleed for the past 1.5 hours. She tried neosinephrine soaked cotton ball without success. She does report feeling somewhat weak and dizzy. SH is on aspirin and plavix. No trauma, chest pain, SOB Related Data Home Medications Medication Instructions Recorded Confirmed atorvastatin 80 mg tablet 80 mg PO HS 04/08/19 04/19/20 calcium carbonate 600 mg calcium 600 mg PO BID 04/08/19 04/19/20 (1,500 mg) tablet carvedilol 3.125 mg tablet 3.125 mg PO Q12H 04/08/19 04/19/20 multivitamin 1 tablet PO DAILY 04/08/19 04/19/20 omega-3 fatty acids 1,000 mg 1,000 mg PO DAILY 04/08/19 04/19/20 capsule aspirin 81 mg tablet,delayed 81 mg PO DAILY 10/09/19 04/19/20 release clopidogrel 75 mg tablet 75 mg PO DAILY 10/09/19 04/19/20 Allergies Allergy/AdvReac Type Severity Reaction Status Date / Time No Known Allergies Allergy Verified 11/14/20 19:56 Review of Systems Constitutional: Constitutional: Denies chills and Denies fever(s) Eyes: Eyes: Reports no additional eye complaints ENT: Denies sore throat Cardiovascular: Cardiovascular: Denies chest pain Respiratory: Respiratory: Denies dyspnea Gastrointestinal: Gastrointestinal: Denies nausea Neurologic: Reports dizziness, Denies syncope and Denies headache(s) [facility] Past Medical History Medical History CAD (coronary artery disease) Current mild episode of major depressive disorder without prior episode Elevated liver enzymes Erythrocytosis HTN (hypertension) Hypertensive heart disease without heart failure IFG (impaired fasting glucose) MDD (major depressive disorder) Metabolic syndrome Mixed hyperlipidemia Old myocardial infarction 2013. sees dr. kaminski Osteoarthritis of left knee Osteoarthritis of right hip Pain of right hip Preoperative clearance Pulmonary HTN RVSP 40 mmHg on 2019 echo Wellness examination Surgical History Surgical History H/O right breast biopsy 04/13/20 stereotactic bx History of coronary artery stent placement 2014 1 stent History of total right hip arthroplasty S/P cataract surgery Status post arterial stent Family History Family History Father Hypertension Cerebrovascular accident Mother Family history of coronary artery disease Social History Social History Smoking packs per day: 1 Smoking cigarettes per day: 20.0 Years smoked: 10 Smoking pack-years: 10.00 Smoking status: Never smoker Tobacco type: cigarettes Second hand tobacco smoke exposure: No Smoking end date: 05/21/74 Alcohol intake: current Drinks per week: 14 Substance use: never Substance use type: does not use 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 Gender identity (if verbalized by the patient): Female Spiritual care concerns: No Agree to blood products: Yes Exam Const: General: healthy appearing, no acute distress and alert Orientation/consciousness: patient oriented x3 HENMT: General nose exam: Epistaxis present on the right active bleeding and source not visualized Eyes: Pupils: Equal, round and reactive pupils present Neck: Neck: normal visual inspection Resp: Effort & Inspection: normal respiratory effort Auscultation: clear to auscultation bilaterally Cardio: Rate: regular rate Rhythm: regular rhythm Skin: General skin exam: normal color and no pallor Neuro: General: patient oriented x3 and moves all extremities Speech: normal speech Extrem: General: normal to inspection Course Vital Signs Vital signs: Vital Signs Temperature 36.4 C 11/14/20 19:51 Pulse Rate 80 11/14/20 19:
[2020-11-14] MEDS: OXYMETAZOLINE HCL 0.05% NAS 15 ML BTL (*BKC) 1 SPRAY NASAL (20:06)
[2020-11-14 20:19] LABS: Basophils Percent Auto 0.2 % (0.2-1.2); Eosinophils Percent Auto 0.2 % (0-4.4); Hematocrit 43.4 % (37.0-47.0); Hemoglobin 14.3 g/dL (12.0-15.0); Immature Granulocyte Absolute 0.01 K/mm3 (0.00-0.031); Immature Granulocyte Percent A 0.2 % (0-0.5); Lymphocytes Absolute Auto 1.57 K/mm3 (0.9-3.2); Lymphocytes Percent Auto 26.5 % (18.3-44.2); Mean Corpuscular HGB Conc 32.9 g/dl (32-36); Mean Corpuscular Volume 91.2 fl (80-100); Mean Platelet Volume 9.4 fl (7.4-10.4); Monocytes Absolute Auto 0.6 K/mm3 (0.1-0.6); Neutrophils Absolute Auto 3.7 K/mm3 (1.3-6.7); Neutrophils Percent Auto 62.9 % (45.5-73.1); Platelet Count Result 336 k/mm3 (150-375); Red Blood Count 4.76 M/mm3 (4.2-5.4); Red Cell Distribution Width 14.2 % (11.5-14.5); White Blood Count 5.9 K/mm3 (4.5-10.0)
== END 2020-11-14 20:59 | disposition home or self-care (01) ==
PROVIDERS: Emergency Provider Emergency Medicine; PCP Family Medicine
DX: R04.0 Epistaxis (principal); I25.10 Atherosclerotic heart disease of native coronary artery without angina pectoris; I11.9 Hypertensive heart disease without heart failure; E78.2 Mixed hyperlipidemia; I25.2 Old myocardial infarction; I27.20 Pulmonary hypertension, unspecified; M16.11 Unilateral primary osteoarthritis, right hip; M17.12 Unilateral primary osteoarthritis, left knee; E88.81 Metabolic syndrome and other insulin resistance; Z79.82 Long term (current) use of aspirin; Z95.5 Presence of coronary angioplasty implant and graft; Z96.641 Presence of right artificial hip joint; Z98.49 Cataract extraction status, unspecified eye; Z87.891 Personal history of nicotine dependence; Z79.02 Long term (current) use of antithrombotics/antiplatelets
CPT/HCPCS: 30901; 36415; 85025; 99283; A9270

== ENCOUNTER 2021-08-23 15:19 | Outpatient (CLI) | payer OTHER, SELFPAY ==
--- NOTE | ~2021-08-23 | MM_ITS ---
EXAMINATION: MM screening patrick BI w danial HISTORY: Screening TECHNIQUE: Craniocaudal and mediolateral oblique 3-D tomosynthesis images were obtained and synthetic 2-D images were generated. CAD analysis was submitted and interpreted. COMPARISON: Comparison to multiple prior studies sequentially, with oldest reviewed study dated 07/04. BREAST PARENCHYMAL COMPOSITION: There are scattered areas of fibroglandular density. FINDINGS: There is no evidence of suspicious mass, calcification, or architectural distortion to sugg est malignancy in either breast. There has been no suspicious interval change. IMPRESSION: 1. No mammographic evidence of malignancy. 2. Recommend routine screening mammography in one year. BI-RADS Category 1: Negative Reviewed, dictated and finalized at location A.
== END 2021-08-23 15:20 | disposition home or self-care (01) ==
PROVIDERS: PCP Family Medicine; Visit Provider Family Medicine
DX: Z12.31 Encounter for screening mammogram for malignant neoplasm of breast (principal)
CPT/HCPCS: 77063; 77067

== ENCOUNTER → 2021-11-09 14:34 | Outpatient (CLI) | payer OTHER, SELFPAY ==
--- NOTE | ~2021-11-09 | XR_ITS ---
EXAM: XR lumbar spine 2-3V DATE: 11/09/2021 15:12 HISTORY: M54.50 - Low back pain, unspecified . COMPARISON: 12/03/2019. FINDINGS: Lumbar scoliosis. 5 nonrib-bearing lumbar-type vertebral bodies. Pedicles intact. Exaggerat ed lumbar lordosis. Multilevel grade 1 retrolistheses, unchanged. Multilevel degenerative disc diseas e and marginal osteophytosis, severe at L5-S1. Multilevel severe hypertrophy and sclerosis in the low er lumbar facets. Aortic calcifications without evident aneurysm. IMPRESSION: Multilevel grade 1 degenerative listheses. Multilevel degenerative disc disease. Multilev el severe facet arthropathy Reviewed, dictated and finalized at location K. IMPRESSION: Multilevel grade 1 degenerative listheses. Multilevel degenerative disc disease. Multilevel severe facet arthropathy
== END ==
PROVIDERS: PCP Family Medicine; Visit Provider Physician Assistant
DX: M54.50 Low back pain, unspecified (principal); M47.817 Spondylosis without myelopathy or radiculopathy, lumbosacral region; I70.0 Atherosclerosis of aorta; M40.46 Postural lordosis, lumbar region
CPT/HCPCS: 72100

== ENCOUNTER 2022-01-22 18:24 | Emergency (ER) | payer OTHER, SELFPAY ==
[2022-01-22 18:25] VITALS: BP 158/67; PULSE 86; RESP 14; TEMP 36.8; O2SAT 94
--- NOTE | 2022-01-22 18:59 | ED.EYEPROB ---
HPI - Eye Problem General Chief complaint: Eye Problems Stated complaint: left eye irritation Time Seen by Provider: 01/22/22 18:31 History of Present Illness HPI Narrative: 76-year-old female presents the emergency room for evaluation of swelling to her left eye. Patient states that she has been fostering a cat for the last week, states she has been experiencing swollen pruritic eyes, redness, tearing and sneezing. Patient states that she has been taking Benadryl every 4-6 hours today with no relief of symptoms. Denies any vision changes Or vision loss. Related Data Home Medications Medication Instructions Recorded Confirmed atorvastatin 80 mg tablet (Lipitor) 80 mg PO HS 04/08/19 01/11/22 calcium carbonate 600 mg calcium 600 mg PO BID 04/08/19 01/11/22 (1,500 mg) tablet (Calcium) carvedilol 3.125 mg tablet 3.125 mg PO Q12H 04/08/19 01/11/22 multivitamin 1 tablet PO DAILY 04/08/19 01/11/22 omega-3 fatty acids 1,000 mg 1,000 mg PO DAILY 04/08/19 01/11/22 capsule (Fish Oil Concentrate) aspirin 81 mg tablet,delayed 81 mg PO DAILY 10/09/19 01/11/22 release (Adult Low Dose Aspirin) clopidogrel 75 mg tablet 75 mg PO DAILY 10/09/19 01/11/22 Allergies Allergy/AdvReac Type Severity Reaction Status Date / Time No Known Allergies Allergy Verified 01/11/22 13:00 Review of Systems Review of Systems: CONSTITUTIONAL: Denies fever, chills, or sweats. EYES: Denies visual changes, reports redness and clear discharge. ENT: Reports rhinorrhea CARDIOVASCULAR: Denies chest pain, palpitations, or edema. RESPIRATORY: Denies cough or dyspnea. GASTROINTESTINAL: Denies abdominal pain, nausea, vomiting, or diarrhea. GENITOURINARY: Denies dysuria or hematuria. SKIN: Denies rash or itching. MUSCULOSKELETAL: Denies back pain, joint pain, or myalgia. NEUROLOGIC: Denies headache, numbness, dizziness, or weakness. PSYCHIATRIC: Denies anxiety or depression. [facility] Past Medical History Medical History IRIVN positive (~07/2020) CAD (coronary artery disease) Current mild episode of major depressive disorder without prior episode Elevated liver enzymes Erythrocytosis HTN (hypertension) Hypertensive heart disease without heart failure IFG (impaired fasting glucose) MDD (major depressive disorder) Metabolic syndrome Mixed hyperlipidemia Obesity Old myocardial infarction 2013. sees dr. kaminski Osteoarthritis of left knee Osteoarthritis of right hip Pain of right hip Preoperative clearance Pulmonary HTN RVSP 40 mmHg on 2019 echo Weakness Wellness examination Surgical History Surgical History H/O right breast biopsy 04/13/20 stereotactic bx History of coronary artery stent placement 2013 1 stent History of total right hip arthroplasty S/P cataract surgery Status post arterial stent Family History Family History Father Hypertension Cerebrovascular accident Mother Family history of coronary artery disease Social History Social History Smoking packs per day: 1 Smoking cigarettes per day: 20.0 Years smoked: 10 Smoking pack-years: 10.00 Smoking status: Former smoker Tobacco type: cigarettes Second hand tobacco smoke exposure: No Smoking end date: 05/21/74 Alcohol intake: current Drinks per week: 14 Substance use: never Substance use type: does not use 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 HEAD: Normocephalic, atraumatic. EYES: Chemosis left eye, erythemato
[2022-01-22] MEDS: DEXAMETHASONE SOD PHOS INJ 4 MG/ML VIAL IM (19:05)
== END 2022-01-22 19:11 | disposition home or self-care (01) ==
PROVIDERS: Emergency Provider Nurse Practitioner Family; PCP Family Medicine
DX: H10.12 Acute atopic conjunctivitis, left eye (principal); I25.10 Atherosclerotic heart disease of native coronary artery without angina pectoris; I11.9 Hypertensive heart disease without heart failure; F32.9 Major depressive disorder, single episode, unspecified; E88.81 Metabolic syndrome and other insulin resistance; E78.2 Mixed hyperlipidemia; I25.2 Old myocardial infarction; E66.9 Obesity, unspecified; Z68.33 Body mass index [BMI] 33.0-33.9, adult; I27.20 Pulmonary hypertension, unspecified; Z95.5 Presence of coronary angioplasty implant and graft; Z96.641 Presence of right artificial hip joint; Z98.49 Cataract extraction status, unspecified eye; Z87.891 Personal history of nicotine dependence
CPT/HCPCS: 96372; 99283; J1100

== ENCOUNTER → 2022-01-24 15:44 | Outpatient (CLI) | payer OTHER, SELFPAY ==
--- NOTE | ~2022-01-24 | MR_ITS ---
EXAMINATION: MR lumbar spine wo con DATE: 01/24/2022 16:34 INDICATION: Persistent low back pain TECHNIQUE: Magnetic resonance imaging (MRI) of the lumbar spine was performed without intravenous con trast. Sequences included sagittal T2-weighted FSE, sagittal T2-weighted FS FSE, sagittal T1-weighted FSE, and axial T2-weighted FSE. COMPARISON: Lumbar spine radiographs dated 11/09/2021 FINDINGS: 18 degrees lumbar levoscoliosis. 2-3 mm retrolisthesis L2 on L3. Mild anterior wedging at T11 and T12 . Small Schmorl's nodes along the T10-T11 and T11-T12 endplates. Lumbar vertebral body heights are no rmal. Mild fibrovascular degenerative endplate changes along the anterior superior endplate of L2. Ma rrow signal is otherwise normal. Mild to moderate disc height loss at L5-S1 and with right-sided claudia nance at L2-L3. Mild disc height loss with right-sided predominance at L1-L2 and L3-L4. Additional mi ld disc height loss at T10-T11 through T12-L1 as well as at L4-L5. Annular fissure with prominent lef t paracentral disc extrusion resulting mild central canal stenosis at T11-T12. More caudal levels hailey l be further detailed on level by level basis below. The conus medullaris terminates at L1. There is normal signal in the caudal spinal cord. Paravertebral soft tissues are unremarkable. The following d isc levels are specifically discussed: T12-L1: Disc is minimally bulging. There is mild left and moderate right facet joint osteoarthritis. There is no neural foraminal stenosis. There is no central canal stenosis. L1-L2: Disc is mildly bulging. There is moderate bilateral facet joint osteoarthritis. There is mild bilateral neural foraminal stenosis. There is mild central canal stenosis. L2-L3: Annular fissure with disc extrusion extending from foraminal zone to foraminal zone with disc material extending a couple millimeter caudal to the level of the superior endplate of L3. There is m oderate bilateral facet joint osteoarthritis. There is moderate bilateral neural foraminal stenosis. There is mild central canal stenosis. L3-L4: Disc is mildly bulging. There is severe bilateral facet joint osteoarthritis. There is mild bi lateral neural foraminal stenosis. There is mild central canal stenosis. L4-L5: Disc is mildly bulging. There is severe bilateral facet joint osteoarthritis. There is moderat e bilateral neural foraminal stenosis. There is mild to moderate central canal stenosis with narrowin g of the left and right lateral recesses. L5-S1: Disc is mildly bulging with annular fissure and superimposed small central disc extrusion with disc material extending couple millimeter cephalad to the level of the inferior endplate of L5. Ther e is moderate right and severe left facet joint osteoarthritis. There is mild right and moderate left neural foraminal stenosis. There is no central canal stenosis. There is mild narrowing of the latera l recesses, left greater than right. IMPRESSION: 1. 18 degree lumbar levoscoliosis with moderate spondylosis. Reviewed, dictated and finalized at location A.
== END ==
PROVIDERS: PCP Family Medicine; Visit Provider Physician Assistant
DX: M54.50 Low back pain, unspecified (principal); M47.816 Spondylosis without myelopathy or radiculopathy, lumbar region; M41.86 Other forms of scoliosis, lumbar region
CPT/HCPCS: 72148

== ENCOUNTER 2022-03-25 17:36 | Emergency (ER) | payer OTHER, SELFPAY ==
[2022-03-25] VITALS (7 sets, daily range): BP systolic 132–148; BP diastolic 64–92; PULSE 60–79; RESP 13–21; TEMP 37.4; O2SAT 95
--- NOTE | ~2022-03-25 | XR_ITS ---
EXAMINATION: XR chest 2V Exam Date/Time: 03/25/2022 17:50 CDT HISTORY: CENTRALIZED CP X TODAY. HX HEART STENT, HTN Comparison: 06/16/2019. RESULT: Lines, tubes, and devices: None. Lungs and pleura: Senescent change. Cardiomediastinal silhouette: Stable. Other: No acute osseous or upper abdominal finding. Exaggerated thoracic kyphosis with DISH. IMPRESSION: No acute cardiopulmonary process. Reviewed, dictated and finalized at location K.
--- NOTE | ~2022-03-25 | CT_ITS ---
EXAMINATION: CTA chest PE protocol DATE: 03/26/2022 00:17 INDICATION: Midsternal intermittent chest pain. Elevated d-dimer. TECHNIQUE: Computed tomography angiography (CTA) of the chest was performed with 100 mL Omnipaque-350 intravenous contrast timed to evaluate the pulmonary arteries. Coronal maximum intensity projection 3D-reconstructions were created by the technologist. Automated exposure control and iterative reconst ruction technique were employed. Exam dose: 563.44 mGy-cm total exam DLP. COMPARISON: 03/25/2022 2 view chest FINDINGS: There is diagnostic contrast enhancement of the pulmonary arteries and no evidence of pulmo nary embolism. Cardiomegaly. No thoracic aortic aneurysm or dissection. No hilar or mediastinal mass lesion or lymphadenopathy. Small sliding hiatal hernia. No pulmonary consolidation. There is some peripheral intralobular septal soft tissue thickening and c ystic change which may be due to usual interstitial pneumonia type chronic interstitial fibrosis. Scoliosis and diffuse idiopathic skeletal hyperostosis of the thoracic spine. Prominent degenerative disc disease in the lower cervical spine. No suspicious osteolytic or osteoblastic lesions. IMPRESSION: No evidence of pulmonary embolism Cardiomegaly Reviewed, dictated and finalized at Location A. Reviewed, dictated and finalized at location A. 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
--- NOTE | 2022-03-25 17:39 | ECG_ITS ---
Measurements Intervals [place] Rate: 73 P: 31 MO: 188 QRS: -10 QRSD: 84 T: 2 QT: 372 QTc: 410 Interpretive Statements SINUS RHYTHM VOLTAGE CRITERIA FOR LVH BORDERLINE R WAVE PROGRESSION, ANTERIOR LEADS INFERIOR INFARCT, AGE INDETERMINATE ABNORMAL ECG COMPARED TO ECG 06/16/2019 11:13:20 NO SIGNIFICANT CHANGES Electronically Signed On 03-25-2022 20:11:53 CDT by David Hernandez D.O.
[2022-03-25 17:56] LABS: Basophils Percent Auto 0.3 % (0.2-1.2); Eosinophils Absolute Auto 0.3 K/mm3 (0-0.3); Eosinophils Percent Auto 3.8 % (0-4.4); Hematocrit 45.3 % (37.0-47.0); Hemoglobin 15.1 g/dL (12.0-15.0); Immature Granulocyte Absolute 0.02 K/mm3 (0.00-0.031); Immature Granulocyte Percent A 0.3 % (0-0.5); Lymphocytes Absolute Auto 1.81 K/mm3 (0.9-3.2); Lymphocytes Percent Auto 25.2 % (18.3-44.2); Mean Corpuscular HGB Conc 33.3 g/dl (32-36); Mean Corpuscular Hemoglobin 32.8 pg (26-34); Mean Corpuscular Volume 98.5 fl (80-100); Mean Platelet Volume 9.3 fl (7.4-10.4); Monocytes Absolute Auto 0.9 K/mm3 (0.1-0.6); Monocytes Percent Auto 11.8 % (2.6-8.5); Neutrophils Absolute Auto 4.2 K/mm3 (1.3-6.7); Neutrophils Percent Auto 58.6 % (45.5-73.1); Platelet Count Result 321 k/mm3 (150-375); Red Cell Distribution Width 13.1 % (11.5-14.5); White Blood Count 7.2 K/mm3 (4.5-10.0)
[2022-03-25 18:05] LABS: Alanine Aminotransferase 27 U/L (6-35); Albumin Level 4.3 g/dL (3.5-5.1); Alkaline Phosphatase 67 U/L (38-126); Anion Gap 12 mmol/L (8-16); Aspartate Amino Transferase 30 U/L (14-36); Bilirubin,Total 0.5 mg/dL (0.2-1.3); Blood Urea Nitrogen 9 mg/dL (7-17); Calcium 8.8 mg/dL (8.4-10.2); Carbon Dioxide 26 mmol/L (22-30); Chloride 101 mmol/L (98-107); Estimated CRCL calculation 84 ml/min; Estimated Glomerular Filt Rate > 60; Glucose 138 mg/dL (65-110); Lipase 60 U/L (23-300); Potassium 3.7 mmol/L (3.4-5.0); Sodium 139 mmol/L (137-145)
[2022-03-25 18:07] LABS: INR 1.1; Prothrombin Time 13.7 Seconds (11.1-14.7)
[2022-03-25 18:17] LABS: Troponin I < 0.012 ng/mL (0.000-0.034)
--- NOTE | 2022-03-25 19:42 | PC.NURSE ---
Patient denies CP at this time. Patient states she gets intermittent sharp pains.
--- NOTE | 2022-03-25 19:47 | PC.NURSE ---
Patient states when pain starts, it feels like a radiating ball . Patient in no pain at this time
--- NOTE | 2022-03-25 20:17 | ECG_ITS ---
Measurements Intervals [place] Rate: 62 P: 37 NV: 198 QRS: 2 QRSD: 88 T: 7 QT: 417 QTc: 425 Interpretive Statements SINUS RHYTHM BORDERLINE R WAVE PROGRESSION, ANTERIOR LEADS INFERIOR INFARCT, AGE INDETERMINATE ABNORMAL ECG COMPARED TO ECG 03/25/2022 17:42:53 NO SIGNIFICANT CHANGES Electronically Signed On 03-25-2022 20:23:20 CDT by David Hernandez D.O.
--- NOTE | 2022-03-25 20:30 | ED.GENADULT ---
HPI - General Adult General Chief complaint: Chest Pain Stated complaint: CHEST PAIN Time Seen by Provider: 03/25/22 20:04 History of Present Illness HPI narrative: This is a 76-year-old female presenting ED with chief complaint of chest pain. Patient says the chest pain started at 12:00 p.m. noon while she was watching TV. She says it feels like a ball in the center of her chest that has sharp edges. She says that it sometimes radiates to her back/shoulders. The pain is improving and was an 8/10 earlier but is now a 2/10. Patient has had pain like this in the past and had been diagnosed with GERD by her primary care physician. She did take Pepcid and Tums today without relief. She does feel that walking has helped with the pain. There are no exacerbating factors. She denies diaphoresis, exertional component, fever, chills, productive cough or lower extremity edema. She did recently travel here from [place]. Related Data Home Medications Medication Instructions Recorded Confirmed atorvastatin 80 mg tablet (Lipitor) 80 mg PO HS 04/08/19 03/16/22 calcium carbonate 600 mg calcium 600 mg PO BID 04/08/19 03/16/22 (1,500 mg) tablet (Calcium) carvedilol 3.125 mg tablet 3.125 mg PO Q12H 04/08/19 03/16/22 multivitamin 1 tablet PO DAILY 04/08/19 03/16/22 omega-3 fatty acids 1,000 mg 1,000 mg PO DAILY 04/08/19 03/16/22 capsule (Fish Oil Concentrate) aspirin 81 mg tablet,delayed 81 mg PO DAILY 10/09/19 03/16/22 release (Adult Low Dose Aspirin) clopidogrel 75 mg tablet 75 mg PO DAILY 10/09/19 03/16/22 Allergies Allergy/AdvReac Type Severity Reaction Status Date / Time No Known Allergies Allergy Verified 03/25/22 19:54 Review of Systems Review of Systems: CONSTITUTIONAL: Denies night sweats. EYES: No eye pain ENT: Denies rhinorrhea CARDIOVASCULAR: Denies palpitations RESPIRATORY: Denies hemoptysis GASTROINTESTINAL: Denies hematemesis GENITOURINARY: Denies hematuria. SKIN: Denies rash MUSCULOSKELETAL: Denies myalgia. NEUROLOGIC: Denies weakness. PSYCHIATRIC: Denies delusions PMFSH Past Medical History Medical History IRVIN positive (~07/2020) CAD (coronary artery disease) Current mild episode of major depressive disorder without prior episode Elevated liver enzymes Erythrocytosis HTN (hypertension) Hypertensive heart disease without heart failure IFG (impaired fasting glucose) MDD (major depressive disorder) Metabolic syndrome Mixed hyperlipidemia Obesity Old myocardial infarction 2014. sees dr. kaminski Osteoarthritis of left knee Osteoarthritis of right hip Pain of right hip Preoperative clearance Pulmonary HTN RVSP 40 mmHg on 2019 echo Weakness Wellness examination Surgical History Surgical History H/O right breast biopsy 04/13/20 stereotactic bx History of coronary artery stent placement 2013 05 stent History of total right hip arthroplasty S/P cataract surgery Status post arterial stent Family History Family History Father Hypertension Cerebrovascular accident Mother Family history of coronary artery disease Social History Social History Smoking packs per day: 1 Smoking cigarettes per day: 20.0 Years smoked: 10 Smoking pack-years: 10.00 Smoking status: Former smoker Tobacco type: cigarettes Second hand tobacco smoke exposure: No Smoking end date: 05/21/74 Alcohol intake: current Drinks per week: 14 Substance use: never Substance use type: does not use 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
[2022-03-25 21:21] LABS: NT Pro B Type Natriuretic Pept 88 pg/mL (5-100)
[2022-03-25 21:24] LABS: Troponin I < 0.012 ng/mL (0.000-0.034)
[2022-03-25 21:32] LABS: D Dimer 1.16 ug/mL (<0.48)
[2022-03-25] MEDS: ACETAMINOPHEN 500 MG TABLET 1000 MG PO (22:18)
--- NOTE | 2022-03-25 22:19 | PC.NURSE ---
Patient removed herself from the monitor and is sitting in her clothes. Patient denies CP at this time.
[2022-03-26 02:05] VITALS: PULSE 80; RESP 18; O2SAT 100
== END 2022-03-26 01:48 | disposition home or self-care (01) ==
PROVIDERS: Emergency Medicine; Emergency Provider Emergency Medicine; PCP Family Medicine
DX: R07.9 Chest pain, unspecified (principal); I25.10 Atherosclerotic heart disease of native coronary artery without angina pectoris; I11.9 Hypertensive heart disease without heart failure; K21.9 Gastro-esophageal reflux disease without esophagitis; I25.2 Old myocardial infarction; E78.2 Mixed hyperlipidemia; Z87.891 Personal history of nicotine dependence
CPT/HCPCS: 36415; 71046; 71275; 80053; 83690; 83880; 84484; 85025; 85380; 85610; 85730; 93005; 99284; A9270; Q9967

== ENCOUNTER 2022-05-05 10:48 | Outpatient (CLI) | payer OTHER, SELFPAY ==
[2022-05-09 11:53] LABS: SS-A <1.0; SS-B <1.0
[2022-05-10 08:06] LABS: Anti Cyclic Citrullinated Pept <16 Units (<20)
[2022-05-15 06:43] LABS: ANCA Screen Negative (Negative)
== END 2022-05-05 10:49 | disposition home or self-care (01) ==
LOC: ANHLAB 10:53
PROVIDERS: PCP Family Medicine; Visit Provider Internal Medicine Pulmonary Disease
DX: J84.10 Pulmonary fibrosis, unspecified (principal)
CPT/HCPCS: 36415; 86036; 86200; 86235

== ENCOUNTER 2022-05-23 12:20 | Outpatient (CLI) | payer OTHER, SELFPAY ==
--- NOTE | 2022-05-24 11:06 | P.PCNPFT_ITS ---
PFT Procedure Performed PFT Procedure Performed Spirometry with Pre/Post Bronchodilator Plethysmography (Lung Vol) Diffusing Cap (DLCO) Flow Vol Loop PFT Interpretation Lung volumes were measured with the body plethysmography method. Lung volumes are unremarkable. Spirometry showed normal expiratory flow rates and a normal FEV1 to FVC ratio of 83%. Following administration of a bronchodilator there was no significant change in the expiratory flow rates. Lung diffusion capacity is within the normal range at 90% predicted. The flow volume loop is unremarkable. In comparison to previous study in 2018 the post bronchodilator FVC and FEV1 are little changes as are the total lung capacity and lung diff usion capacity. impression: Spirometry, lung volumes, and lung diffusion capacity all within the normal range.
--- NOTE | 2022-05-24 11:08 | WPDSIXMINUTE ---
Six Minute Walk Procedure Procedure Performed Pulmonary Stress Test (6 min walk) Six Minute Walk Six Minute Walk: This 6 minute walk test was carried out with the patient breathing ambient air. The pre-walk baseline oxyhemoglobin saturation was 91%. The patient walked 274 m with no stops during testing. During the walk the oxyhemoglobin saturation remained in the range of 90% to 92%. Impression: No evidence of oxyhemoglobin desaturation on this testing.
== END 2022-05-23 12:21 | disposition home or self-care (01) ==
PROVIDERS: PCP Family Medicine; Visit Provider Internal Medicine Pulmonary Disease
DX: J84.10 Pulmonary fibrosis, unspecified (principal); Z87.891 Personal history of nicotine dependence
CPT/HCPCS: 94060; 94618; 94726; 94729

== ENCOUNTER 2022-06-09 15:00 | Outpatient (CLI) | payer OTHER, SELFPAY ==
--- NOTE | ~2022-06-09 | XR_ITS ---
XR knee LT min 4V DATE: 06/09/2022 15:33 INDICATION: Left anterior knee pain for one month. No injury. TECHNIQUE: [place] and standing AP, PA and lateral views COMPARISON: 10/09/2019 left knee FINDINGS: Osteopenia. There is severe joint space narrowing and spurring of the patellofemoral joint. Moderately severe loss of medial compartment joint space height. There is prominent particular spurri ng of the lateral compartment. No fracture or dislocation or joint effusion. No periosteal reaction or bone destruction. No radiopaq ue intra-articular loose body or chondrocalcinosis is detected. IMPRESSION: Prominent tricompartment osteoarthritis, most severe at the patellofemoral compartment Osteopenia Reviewed, dictated and finalized at location B. GER MOTOR IMPRESSION: Prominent tricompartment osteoarthritis, most severe at the patello femoral compartment Osteopenia
== END 2022-06-09 15:01 | disposition home or self-care (01) ==
PROVIDERS: PCP Family Medicine; Visit Provider Internal Medicine Pulmonary Disease
DX: M25.562 Pain in left knee (principal); M17.12 Unilateral primary osteoarthritis, left knee; M85.862 Other specified disorders of bone density and structure, left lower leg
CPT/HCPCS: 73564

== ENCOUNTER 2022-06-12 11:37 | Outpatient (CLI) | payer OTHER, SELFPAY | END 2022-06-12 11:38 | disposition home or self-care (01) | LOC: ANHLAB 11:37 | PROVIDERS: PCP Family Medicine; Visit Provider Internal Medicine Pulmonary Disease | DX: J84.10 Pulmonary fibrosis, unspecified (principal) | CPT/HCPCS: 36415; 86038 ==

== ENCOUNTER 2022-11-03 00:22 | Day surgery (SDC) | payer OTHER, SELFPAY ==
[2022-10-25 13:31] VITALS: BMI 33.7
--- NOTE | 2022-11-03 07:20 | PM.HPGS ---
History of Present Illness History of Present Illness Consent: Risks, benefits, and alternatives have been discussed and questions answered. Patient agrees to proceed with procedure. Chief complaint: melena Narrative: Elyse Colon is a 76 year old female Referred for investigation of blood in the stools. She had been in [place] where she developed some sort of dysentery. Towards the end of that she noticed which appeared to be red blood in her stool. That has cleared up, but her stools have been very inconsistent lately. She will be constipated, have no bowel movements for few days then passed hard stool followed by a quite a bit of looser stool. Her typical breakfast is a muffin Review of Systems Review of Systems: All systems reviewed & are unremarkable except as noted in HPI and below PMFSH Past Medical History Medical History IRVIN positive (~07/2020) CAD (coronary artery disease) Current mild episode of major depressive disorder without prior episode Elevated liver enzymes Erythrocytosis HTN (hypertension) Hypertensive heart disease without heart failure IFG (impaired fasting glucose) MDD (major depressive disorder) Metabolic syndrome Mixed hyperlipidemia Obesity Old myocardial infarction 2013. sees dr. kaminski Osteoarthritis of left knee Osteoarthritis of right hip Pain of right hip Preoperative clearance Pulmonary HTN RVSP 40 mmHg on 2019 echo Weakness Wellness examination Surgical History Surgical History H/O right breast biopsy 04/13/20 stereotactic bx History of coronary artery stent placement 2013 1 stent History of total right hip arthroplasty S/P cataract surgery Status post arterial stent Family History Family History Father Hypertension Cerebrovascular accident Mother Family history of coronary artery disease Social History Social History Smoking packs per day: 1 Smoking cigarettes per day: 20.0 Years smoked: 10 Smoking pack-years: 10.00 Smoking status: Former smoker Tobacco type: cigarettes Second hand tobacco smoke exposure: No Smoking end date: 05/21/74 Alcohol intake: current Drinks per week: 14 Alcohol use details: 2-3 glasses of wine per evening - has quit for past few months Substance use: never Substance use type: does not use Living arrangements: alone Occupation/Education: occupation 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 Gender identity (if verbalized by the patient): Female Sexual Orientation (if Verbalized by the Patient): Straight or Heterosexual Spiritual care concerns: No Agree to blood products: Yes Meds Home Medications and Allergies Home Medications Medication Instructions Recorded Confirmed Type atorvastatin 80 mg tablet (Lipitor) 80 mg PO HS 04/08/19 10/25/22 History calcium carbonate 600 mg calcium 600 mg PO BID 04/08/19 10/25/22 History (1,500 mg) tablet (Calcium) carvedilol 3.125 mg tablet 3.125 mg PO Q12H 04/08/19 11/03/22 History multivitamin 1 tablet PO DAILY 04/08/19 10/25/22 History omega-3 fatty acids 1,000 mg 1,000 mg PO DAILY 04/08/19 10/25/22 History capsule (Fish Oil Concentrate) aspirin 81 mg tablet,delayed 81 mg PO DAILY 10/09/19 10/25/22 History release (Adult Low Dose Aspirin) clopidogrel 75 mg tablet 75 mg PO DAILY 10/09/19 11/03/22 History lisinopril 20 mg tablet 30 mg PO DAILY #135 tabs 04/26/22 10/25/22 Rx trazodone 100 mg tablet 100 mg PO DAILY #90 tabs 04/26/22 10/25/22 Rx Overnight Ox #1 ea 06/09/22 10/25/22 Rx oxybutynin chloride 5 mg tablet 5 mg PO BID #180 tabs 07/25/22 10/25/22 Rx nitroglycerin 0.4 mg sublingual 0.4 mg sublingual Q5MIN PRN Chest 10/25/22 10/25/22 History tablet Pain sertraline 25 mg tablet (Zoloft) 25 mg PO DAILY #30 tab
--- NOTE | 2022-11-03 08:14 | WPDANESEPPF ---
Anes - Initial Pre Proc Eval Procedure: Operation Date: 11/03/22 13:00 Proposed Procedures p Colonoscopy - Lloyd Latham MD Date/Time: 11/03/22 08:14 Surgeon: Lloyd Latham MD Pre Op Diagnosis: melena Patient Data Age: 76 Gender: F Height: 1.7 m Weight: 97.7 kg Allergies Allergy/AdvReac Type Severity Reaction Status Date / Time No Known Allergies Allergy Verified 11/03/22 11:50 Home Medications Medication Instructions Recorded Confirmed Type atorvastatin 80 mg tablet (Lipitor) 80 mg PO HS 04/08/19 10/25/22 History calcium carbonate 600 mg calcium 600 mg PO BID 04/08/19 10/25/22 History (1,500 mg) tablet (Calcium) carvedilol 3.125 mg tablet 3.125 mg PO Q12H 04/08/19 11/03/22 History multivitamin 1 tablet PO DAILY 04/08/19 10/25/22 History omega-3 fatty acids 1,000 mg 1,000 mg PO DAILY 04/08/19 10/25/22 History capsule (Fish Oil Concentrate) aspirin 81 mg tablet,delayed 81 mg PO DAILY 10/09/19 10/25/22 History release (Adult Low Dose Aspirin) clopidogrel 75 mg tablet 75 mg PO DAILY 10/09/19 11/03/22 History lisinopril 20 mg tablet 30 mg PO DAILY #135 tabs 04/26/22 10/25/22 Rx trazodone 100 mg tablet 100 mg PO DAILY #90 tabs 04/26/22 10/25/22 Rx Overnight Ox #1 ea 06/09/22 10/25/22 Rx oxybutynin chloride 5 mg tablet 5 mg PO BID #180 tabs 07/25/22 10/25/22 Rx nitroglycerin 0.4 mg sublingual 0.4 mg sublingual Q5MIN PRN Chest 10/25/22 10/25/22 History tablet Pain sertraline 25 mg tablet (Zoloft) 25 mg PO DAILY #30 tabs 10/25/22 10/25/22 Rx Patient hx anesthesia problems: none Family hx anesthesia problems: none Results Review: All pre-operative results and documents have been reviewed as part of the pre-operative evaluation. [facility] Past Medical History Medical History IRVIN positive (~07/2020) CAD (coronary artery disease) Current mild episode of major depressive disorder without prior episode Elevated liver enzymes Erythrocytosis HTN (hypertension) Hypertensive heart disease without heart failure IFG (impaired fasting glucose) MDD (major depressive disorder) Metabolic syndrome Mixed hyperlipidemia Obesity Old myocardial infarction 2014. sees dr. kaminski Osteoarthritis of left knee Osteoarthritis of right hip Pain of right hip Preoperative clearance Pulmonary HTN RVSP 40 mmHg on 2019 echo Weakness Wellness examination Surgical History Surgical History H/O right breast biopsy 04/13/20 stereotactic bx History of coronary artery stent placement 2013 1 stent History of total right hip arthroplasty S/P cataract surgery Status post arterial stent Family History Family History Father Hypertension Cerebrovascular accident Mother Family history of coronary artery disease Social History Social History Smoking packs per day: 1 Smoking cigarettes per day: 20.0 Years smoked: 10 Smoking pack-years: 10.00 Smoking status: Former smoker Tobacco type: cigarettes Second hand tobacco smoke exposure: No Smoking end date: 05/21/74 Alcohol intake: current Drinks per week: 14 Alcohol use details: 2-3 glasses of wine per evening - has quit for past few months Substance use: never Substance use type: does not use Living arrangements: alone Occupation/Education: occupation 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
[2022-11-03 11:55] VITALS: BP 149/76; PULSE 60; RESP 18; TEMP 36.1; O2SAT 95
[2022-11-03] MEDS: LACTATED RINGERS 1,000 ML 150 ML IV CONT (12:03)
[2022-11-03 13:25] VITALS: BP 121/64; PULSE 65; RESP 18; O2SAT 93
[2022-11-03 13:35] VITALS: BP 130/64; PULSE 64; RESP 16; O2SAT 93
[2022-11-03 13:45] VITALS: BP 147/81; PULSE 65; RESP 16; O2SAT 98
== END 2022-11-03 13:48 | disposition home or self-care (01) ==
PROVIDERS: PCP Family Medicine; Visit Provider Internal Medicine Gastroenterology
PROC: 0DJD8ZZ Inspection of Lower Intestinal Tract, Via Natural or Artificial Opening Endoscopic (ICD-10-PCS; CPT 45378; principal; 2022-11-03 13:00)
DX: K92.1 Melena (principal); K57.30 Diverticulosis of large intestine without perforation or abscess without bleeding; K64.8 Other hemorrhoids; I25.10 Atherosclerotic heart disease of native coronary artery without angina pectoris; I11.9 Hypertensive heart disease without heart failure; E78.2 Mixed hyperlipidemia; I27.20 Pulmonary hypertension, unspecified; F32.0 Major depressive disorder, single episode, mild; Z79.02 Long term (current) use of antithrombotics/antiplatelets; Z79.82 Long term (current) use of aspirin; Z95.5 Presence of coronary angioplasty implant and graft; Z87.891 Personal history of nicotine dependence; E66.9 Obesity, unspecified; Z68.32 Body mass index [BMI] 32.0-32.9, adult
CPT/HCPCS: 45378; J2704; J7120

== ENCOUNTER 2022-12-20 08:30 | Outpatient (CLI) | payer OTHER, SELFPAY ==
--- NOTE | ~2022-12-20 | DEXA_ITS ---
Bone Density Report Name: MARKO TORRES Age: 76 Sex: Female Ethnicity: White Date of : 1945 Indication: postmenopausal; screening for osteoporosis; height loss; prior fracture; Referring Provider: JOSE MANJARREZ Study: Bone densitometry was performed. Exam Date: December 20, 2022 Accession number: [id number] Bone Density: Region BMD T-score Z-score Classification AP Spine(L1, L2, L3) 1.117 0.9 3.3 Normal Femoral Neck (Left) 0.873 0.2 2.3 Normal Total Hip (Left) 0.962 0.2 1.9 Normal World Health Organization criteria for BMD impression classify patients as: Normal (T-score at or above -1.0), Osteopenia (T-score between -1.0 and -2.5), or Osteoporosis (T-score at or below -2.5). 10-year Fracture Risk: FRAX not reported because: All T-scores for Spine Total, Hip Total, Femoral Neck at or above -1.0 Clinical Information Provided by Patient: Has had a low trauma fracture Has used the following medications: Calcium Patient maximum height was 67 Menopause Age: 54 No regular weight bearing exercise Onset of menses at age 15 Number of children 3 Impression: The patient has normal bone mass. The patient has risk factors, including: previous fracture. Discussion: BONE DENSITY IS ABOVE THE MINIMUM DESIRABLE LEVEL AT ALL SKELETAL SITES TESTED. This patient?s bone mineral density is above the minimum desirable level (T-score -1.0 or better) at all sites measured. The patient should follow a healthful lifestyle (good nutrition with adequate calcium and vitamin D, and appropriate weight-bearing exercise). Follow-Up: Consider repeating this study in 5 years or sooner if there is some new clinical indication. Reported by: SASHA on 12/20/2022 8:59:00 AM. Reviewed, dictated and finalized at location ASoledad MCBRIDE
--- NOTE | ~2022-12-20 | MM_ITS ---
EXAMINATION: MM screening patrick BI w danial HISTORY: Screening mammogram TECHNIQUE: Craniocaudal and mediolateral oblique 3-D tomosynthesis images were obtained and synthetic 2-D images were generated. CAD analysis was submitted and interpreted. COMPARISON: 08/23/2021, 01/23/2020 BREAST PARENCHYMAL COMPOSITION:The breasts are heterogeneously dense, which may obscure small masses. FINDINGS: Biopsy marker noted in the right breast. No suspicious mass, calcification, or architectura l distortion are identified in either breast to suggest malignancy. There has been no suspicious inte rval change. IMPRESSION: No mammographic evidence of malignancy. Recommend routine screening mammography in one year. BI-RADS Category 2: Benign finding(s). Reviewed, dictated and finalized at location M.
== END 2022-12-20 08:31 | disposition home or self-care (01) ==
LOC: ANHIMG 08:31
PROVIDERS: PCP Family Medicine; Visit Provider Physician Assistant
DX: Z12.31 Encounter for screening mammogram for malignant neoplasm of breast (principal); Z13.820 Encounter for screening for osteoporosis; Z78.0 Asymptomatic menopausal state
CPT/HCPCS: 77063; 77067; 77080

== ENCOUNTER 2022-12-26 10:02 | Outpatient (CLI) | payer OTHER, SELFPAY ==
--- NOTE | 2022-12-27 11:51 | WPDPFTINT ---
PFT Procedure Performed PFT Procedure Performed Spirometry with Pre/Post Bronchodilator Plethysmography (Lung Vol) Diffusing Cap (DLCO) Flow Vol Loop PFT Interpretation DOS: 12/26/2022 REQUESTING: Ranulfo Calderon MD REASON FOR TESTING: pulmonary fibrosis PULMONARY FUNCTION TESTS Results are reliable and reproducible Grade A. Spirometry: pre bronchodilator FEV1 is 2.43 L, 107% predicted, normal. Pre bronchodilator FVC is 3.05 L, 102% predicted, normal. FEV1/ FVC ratio was 80%, normal. After bronchodilator there is a 3% drop in the FEV1 and a 5% drop in the FVC, not significant changes. Lung volumes: Total lung capacity 5.03 L, 91%, normal. Residual volume 1.67 L, 68%, mildly decreased. RV/ TLC 0 is 33%, below normal. Clinical significance is unclear. Normal airway resistance. Diffusion: DLCO is 16.6, 79%, normal. DLCO/VA is 4.17, 102%, normal. Flow volume loop: Flow volume loop is unremarkable. IMPRESSION: Normal spirometry without change after bronchodilator, normal lung volumes, normal diffusion. Compared to a prior study May 23, 2022 values are similar. FEV1 was 2.43 L exactly the same. Total lung capacity was 5.51 L now 5.03 L still normal. The DLCO was 90% and now 79% but still in the normal range. Elba Neri MD
--- NOTE | 2022-12-27 11:57 | WPDSIXMINUTE ---
Six Minute Walk Procedure Procedure Performed Pulmonary Stress Test (6 min walk) Six Minute Walk Six Minute Walk: DATE OF SERVICE: 12/26/2022 REQUESTING: Kvng [place] MD REASON FOR TESTING: pulmonary fibrosis SIX MINUTE WALK This test was conducted per ATS guidelines. The initial saturation was 92%, and initial heart rate was 55. The patient walked without stopping, completing 900 ft/ 274 m. The saturation at the end of testing was 91%, and the heart rate was 93. After 2 minutes of recovery, pulse returned to baseline, 53 beats per minute. The lowest saturation noted during the study was briefly 89%, highest saturation was 95%. IMPRESSION: This study shows a low starting baseline saturation of 92% with mild desaturation to 89% but no mandie hypoxemia. The patient did not require supplemental oxygen with exertion. Elba Neri MD
== END 2022-12-26 10:03 | disposition home or self-care (01) ==
LOC: ANHPFT 10:03
PROVIDERS: PCP Family Medicine; Visit Provider Internal Medicine Pulmonary Disease
DX: J84.10 Pulmonary fibrosis, unspecified (principal)
CPT/HCPCS: 94060; 94726; 94729

== ENCOUNTER 2023-05-14 00:19 | Emergency (ER) | payer OTHER, SELFPAY ==
--- NOTE | ~2023-05-14 | CT_ITS ---
EXAMINATION: CT cervical spine wo con DATE: 05/14/2023 00:39 INDICATION: Fall. Neck pain. TECHNIQUE: Computed tomography (CT) of the cervical spine was performed without intravenous contrast. Automated exposure control and iterative reconstruction technique were employed. Exam dose: 416.28 mGy-cm total exam DLP. COMPARISON: None FINDINGS: C1 and C2 are normally aligned and the odontoid process is intact. No fracture or dislocati on, locked facet or prevertebral soft tissue swelling. There is cervical spondylosis including moderately severe degenerative disc disease at C5-6 and C6-7, prominent degenerative change at the C5-6 and C6-7 uncovertebral joints and the apophyseal joints. . IMPRESSION: Cerebral spondylosis; no fracture or dislocation Reviewed, dictated and finalized at Location [facility]. Reviewed, dictated and finalized at location A. DESIGNER
--- NOTE | ~2023-05-14 | CT_ITS ---
EXAMINATION: CT brain wo con DATE: 05/14/2023 00:39 INDICATION: Fall. Head injury. Patient on blood thinners. TECHNIQUE: Computed tomography (CT) of the head was performed without intravenous contrast. The mA wa s adjusted according to patient size. Iterative reconstruction technique was employed. Exam dose: 60 5.33 mGy-cm total exam DLP. COMPARISON: 10/05/2018 CT brain FINDINGS: Left supraorbital hematoma, left frontal cephalohematoma. No skull fracture or intracranial coup or contrecoup injury is detected. The paranasal sinuses and mastoid air cells are normally developed and aerated. Bilateral carotid siphon internal carotid artery calcifications. No intracranial mass lesion or hemorrhage, midline shift or mass effect. Normal ventricular size. No subdural or epidural hematoma. IMPRESSION: Left supraorbital hematoma, left frontal cephalhematoma; no acute intracranial abnormali ty Reviewed, dictated and finalized at Location [facility]. Reviewed, dictated and finalized at location A. WEB DEVELOPER IMPRESSION: Left supraorbital hematoma, left frontal cephalhematoma; no acute intracranial abnormality
[2023-05-14 00:25] VITALS: BP 132/71; PULSE 58; RESP 17; TEMP 36.3; O2SAT 96
--- NOTE | 2023-05-14 00:29 | PC.NURSE ---
Patient taken to CT at this time via w/c.
[2023-05-14 01:23] VITALS: BP 110/71; PULSE 58; RESP 15; O2SAT 93
[2023-05-14] MEDS: ACETAMINOPHEN 500 MG TABLET 1000 MG PO (01:32)
--- NOTE | 2023-05-14 02:26 | ED.FALL ---
HPI - Fall General Chief Complaint: Fall Stated Complaint: Fall, head lac Time Seen by Provider: 05/14/23 02:25 Source: patient and family Limitations: no limitations History of Present Illness HPI Narrative: R hand dominant female presents as a fall from ground level. She was getting up out of bed walking to the toilet in the middle of the night when she fell forward. No loss of consciousness, remembers the fall but does not know why she fell. Thinks possibly tripped. Did not feel dizzy/flushed preceding fall though does state has been feeling slightly dizzy over the past few days. On Plavix (not aspirin) for Hx of [place] with stents. Complaining of neck pain and pain at L forehead where she has a laceration. Last tetanus 3-4 years ago. Initially had a headache but this resolved. Bathroom is 10-20 feet from the bed. No preceding or current chest pain, shortness of breath, cough, fever, diarrhea, diaphoresis. No paresthesias. Related Data Home Medications Medication Instructions Recorded Confirmed atorvastatin 80 mg tablet (Lipitor) 80 mg PO HS 04/08/19 05/01/23 calcium carbonate 600 mg calcium 600 mg PO BID 04/08/19 05/01/23 (1,500 mg) tablet (Calcium) carvedilol 3.125 mg tablet 3.125 mg PO Q12H 04/08/19 05/01/23 multivitamin 1 tablet PO DAILY 04/08/19 05/01/23 omega-3 fatty acids 1,000 mg 1,000 mg PO DAILY 04/08/19 05/01/23 capsule (Fish Oil Concentrate) clopidogrel 75 mg tablet 75 mg PO DAILY 10/09/19 05/01/23 nitroglycerin 0.4 mg sublingual 0.4 mg sublingual Q5MIN PRN Chest 10/25/22 05/01/23 tablet Pain Allergies Allergy/AdvReac Type Severity Reaction Status Date / Time No Known Allergies Allergy Verified 05/14/23 00:30 [facility] Past Medical History Medical History IRVIN positive (~07/2020) CAD (coronary artery disease) Current mild episode of major depressive disorder without prior episode Elevated liver enzymes Erythrocytosis HTN (hypertension) Hypertensive heart disease without heart failure IFG (impaired fasting glucose) MDD (major depressive disorder) Metabolic syndrome Mixed hyperlipidemia Obesity Old myocardial infarction 2014. sees dr. kaminski Osteoarthritis of left knee Osteoarthritis of right hip Pain of right hip Preoperative clearance Pulmonary HTN RVSP 40 mmHg on 2019 echo Right hand dominant Weakness Wellness examination Surgical History Surgical History H/O right breast biopsy 04/13/20 stereotactic bx History of coronary artery stent placement 2013 1 stent History of total right hip arthroplasty S/P cataract surgery Status post arterial stent Family History Family History Father Hypertension Cerebrovascular accident Mother Family history of coronary artery disease Social History Social History Smoking packs per day: 1 Smoking cigarettes per day: 20.0 Years smoked: 10 Smoking pack-years: 10.00 Smoking status: Former smoker Tobacco type: cigarettes Second hand tobacco smoke exposure: No Smoking end date: 05/21/74 Alcohol intake: current Drinks per week: 14 Alcohol use details: 2-3 glasses of wine per evening - has quit for past few months Substance use: never Substance use type: does not use Living arrangements: alone Occupation/Education: occupation 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 HEAD: EYES: Non injected, non icteric ENT: Nares clear, no rhinorrhea or epistaxis. NECK: Supple. No TTP of midline C spine which ar
--- NOTE | 2023-05-14 02:27 | ECG_ITS ---
Measurements Intervals [place] Rate: 57 P: 34 WI: 207 QRS: 0 QRSD: 95 T: 19 QT: 438 QTc: 428 Interpretive Statements SINUS BRADYCARDIA WITH APCS AND SINUS ARRHYTHMIA COMPARED TO ECG 03/25/2022 20:19:12 NO SIGNIFICANT CHANGES Electronically Signed On 05-14-2023 13:50:24 EQUIPMENT OR MACHINERY CLEANER by Minerva Bolanos M.D.
[2023-05-14 03:54] VITALS: BP 135/72; PULSE 56; RESP 15; O2SAT 94
[2023-05-14 04:18] LABS: Basophils Percent Auto 0.2 % (0.2-1.2); Eosinophils Percent Auto 0.2 % (0-4.4); Hematocrit 46.4 % (37.0-47.0); Hemoglobin 15.2 g/dL (12.0-15.0); Immature Granulocyte Absolute 0.02 K/mm3 (0.00-0.031); Immature Granulocyte Percent A 0.3 % (0-0.5); Lymphocytes Absolute Auto 1.46 K/mm3 (0.9-3.2); Lymphocytes Percent Auto 23.1 % (18.3-44.2); Mean Corpuscular HGB Conc 32.8 g/dl (32-36); Mean Corpuscular Hemoglobin 31.5 pg (26-34); Mean Corpuscular Volume 96.3 fl (80-100); Mean Platelet Volume 9.4 fl (7.4-10.4); Monocytes Absolute Auto 0.6 K/mm3 (0.1-0.6); Monocytes Percent Auto 8.7 % (2.6-8.5); Neutrophils Absolute Auto 4.3 K/mm3 (1.3-6.7); Neutrophils Percent Auto 67.5 % (45.5-73.1); Platelet Count Result 316 k/mm3 (150-375); Red Blood Count 4.82 M/mm3 (4.2-5.4); Red Cell Distribution Width 13.2 % (11.5-14.5); White Blood Count 6.3 K/mm3 (4.5-10.0)
[2023-05-14 04:22] LABS: Appearance Urine Clear (Clear); Bacteria Urine None Seen /hpf; Bilirubin Urine Negative (Negative); Blood Urine 1+ (Negative); Color Urine Yellow (Yellow); Glucose Urine UA Negative (Negative); Ketones Urine Negative (Negative); Leukocyte Esterase Ur 1+ LEU/UL (Negative); Nitrate Urine Negative (Negative); Non Pathogenic Casts 0-2; Protein Urine Negative (Negative); RBC Urine 0-2 /hpf (0-2); Specific Grav Ur 1.007 (1.001-1.035); Squamous Epithelial Cell Urine Occasional /hpf (Few); Urobilinogen Urine 0.2 mg/dL (<2.0); pH Urine 5.5 (5.0-9.0)
[2023-05-14 04:26] LABS: Add Urine Microscopic? YES
[2023-05-14 04:30] LABS: Alanine Aminotransferase 17 U/L (6-35); Albumin Level 4.1 g/dL (3.5-5.1); Alkaline Phosphatase 66 U/L (38-126); Anion Gap 11 mmol/L (8-16); Aspartate Amino Transferase 23 U/L (14-36); Bilirubin,Total 0.5 mg/dL (0.2-1.3); Blood Urea Nitrogen 10 mg/dL (7-17); Calcium 9.6 mg/dL (8.4-10.2); Carbon Dioxide 23 mmol/L (22-30); Chloride 108 mmol/L (98-107); Estimated CRCL calculation 81 ml/min; Estimated Glomerular Filt Rate > 60; Glucose 100 mg/dL (65-110); Potassium 3.8 mmol/L (3.4-5.0); Sodium 142 mmol/L (137-145)
[2023-05-14 04:33] LABS: INR 1.1; Prothrombin Time 15.2 Seconds (11.1-14.7)
[2023-05-14 04:34] LABS: Partial Thromboplastin Time 39.9 SECONDS (22.3-36.8)
[2023-05-14 04:42] LABS: NT Pro B Type Natriuretic Pept 89 pg/mL (19.9-100); Troponin I < 0.012 ng/mL (0.000-0.034)
[2023-05-14 06:50] VITALS: BP 153/84; PULSE 67; RESP 15; O2SAT 95
--- NOTE | 2023-05-14 07:19 | PC.NURSE ---
Assumed care of pt. Pt resting with reg resp. Sutures intact.
[2023-05-14 07:21] VITALS: BP 151/83; PULSE 52; RESP 16; O2SAT 96
== END 2023-05-14 07:24 | disposition home or self-care (01) ==
PROVIDERS: Emergency Provider Student in an Organized Health Care Education/Training Program; PCP Family Medicine
DX: S01.81XA Laceration without foreign body of other part of head, initial encounter (principal); N39.0 Urinary tract infection, site not specified; I25.2 Old myocardial infarction; I25.10 Atherosclerotic heart disease of native coronary artery without angina pectoris; I11.9 Hypertensive heart disease without heart failure; E78.2 Mixed hyperlipidemia; Z87.891 Personal history of nicotine dependence; Z79.01 Long term (current) use of anticoagulants; W18.30XA Fall on same level, unspecified, initial encounter
CPT/HCPCS: 12011; 36415; 70450; 72125; 80053; 81001; 83735; 83880; 84484; 85025; 85610; 85730; 87086; 87088; 93005; 96365; 99284; A9270; J0696

== ENCOUNTER 2023-07-25 10:01 | Outpatient (CLI) | payer OTHER, SELFPAY ==
--- NOTE | ~2023-07-25 | CT_ITS ---
CT Scan of the Chest without Contrast: Clinical Indication: Pulmonary fibrosis Technique: Contiguous sections were acquired throughout the chest without intravenous contrast. Dose reduction technique was used on this scan by utilizing automated exposure control and iterative recon struction technique. The dose-length product (DLP) was 271.97 mGy-cm. COMPARISON: 03/25/2022 Findings: There is no evidence of any significant mediastinal, hilar or axillary lymphadenopathy. The mediastin al soft tissues appear normal. There is no evidence of pleural or pericardial effusion. There is mild chronic interstitial thickening, basilar and peripheral distribution. No suspicious pul monary nodule evident. Images through the upper abdomen reveal small gallstone. Impression: Mild chronic interstitial disease, as detailed above, essentially stable from prior exam. Reviewed, dictated and finalized at location . ICAL ACCOUNT MANAGER Impression: Mild chronic interstitial disease, as detailed above, essentially stable from p rior exam.
== END 2023-07-25 10:02 | disposition home or self-care (01) ==
PROVIDERS: PCP Family Medicine; Visit Provider Internal Medicine Pulmonary Disease
DX: J84.10 Pulmonary fibrosis, unspecified (principal); R91.8 Other nonspecific abnormal finding of lung field
CPT/HCPCS: 71250

== ENCOUNTER 2023-10-25 16:14 | Observation (INO) | payer OTHER, SELFPAY ==
[2023-10-25] VITALS (10 sets, daily range): BP systolic 124–189; BP diastolic 59–86; PULSE 51–64; RESP 17–20; TEMP 36.4–36.5; O2SAT 95–98; BMI 33.5; BMI 33.0
--- NOTE | ~2023-10-25 | XR_ITS ---
EXAMINATION: XR chest 2V DATE: 10/25/2023 16:35 INDICATION: Chest pain. TECHNIQUE: Frontal and lateral views of the chest were obtained. COMPARISON: Chest 2 views 03/25/2022, chest CT 07/25/2023 FINDINGS: There is a chronic interstitial pattern in the lungs with a peripheral and lower lung predo minance. No pleural effusion or pneumothorax. Cardiomegaly is noted. IMPRESSION: 1. Stable chronic interstitial lung disease. 2. Cardiomegaly. Reviewed, dictated and finalized at location A.
--- NOTE | ~2023-10-25 | NM_ITS ---
EXAMINATION: NM amanda stress w perfusion DATE: 10/26/2023 13:53 INDICATION: Chest pain. Coronary atherosclerosis. TECHNIQUE: Rest images were obtained following intravenous administration of 10 mCi Tc99m tetrofosmin (Myoview). The patient was infused intravenously with Lexiscan (regadenoson). Then, 32 mCi Tc99m tet rofosmin (Myoview) was administered intravenously, and stress images were obtained. Data was reconstr ucted into short axis and horizontal and vertical long axis SPECT images. Gated SPECT images were als o obtained. COMPARISON: None. FINDINGS: There is no definite reversible or fixed perfusion abnormality to suggest ischemia or infar ction. There is no segmental wall motion abnormality. Left ventricular ejection fraction measures > 70%. IMPRESSION: 1. No definite ischemia or infarct. 2. Normal left ventricular ejection fraction measuring >70%. Reviewed, dictated and finalized at location A.
--- NOTE | 2023-10-25 16:17 | ECG_ITS ---
[facility] [address] Test Date: 2023-10-25 Pat Name: Elyse Colon Department: Room: Gender: F Cardiovascular Invasive Specialist: : 1945 Requested By: America Remy Order Number: [id number] Jose MD: Albert Michael M.D. Measurements Intervals [place] Rate: 63 P: 40 SC: 187 QRS: -13 QRSD: 89 T: -1 QT: 430 QTc: 443 Interpretive Statements SINUS RHYTHM CANNOT RULE OUT PREVIOUSINFERIOR MYOCARDIAL INFARCTION ABNORMAL ECG No previous ECG available for comparison Electronically Signed On 10-26-2023 08:56:00 CDT by Albert Michael M.D.
[2023-10-25] MEDS: ASPIRIN 81 MG CHEWABLE TABLET 324 MG PO (16:27)
--- NOTE | 2023-10-25 16:31 | ED.CHESTPAIN ---
HPI - Chest Pain General Chief Complaint: Chest Pain Stated Complaint: chest pain Time Seen by Provider: 10/25/23 16:25 Source: patient Mode of arrival: ambulatory Limitations: no limitations History of Present Illness HPI narrative: Patient presents with report of chest pain. It started at 12:30 while she was at rest, on her deck. Episode lasted for approximately 2 - 2.5hours. She eventually decided to find and take some NTG she had previously been prescribed though never taken. She took one followed by a second dose after 5 minutes for persistent pain and this finally provided some relief except for lightheadedness. Chest pain has resolved at the time of arrival to the ED. She denies any SOB during the episode but did feel dyspneic while walking from her car into the ED triage area. Sees a district associate judge through [facility] though there have been some changes so she doesn't know which district associate judge she has her annual appointment with. She also doesn't know if that appointment is coming up this month or later this summer. She felt nauseated at the beginning of the incident and even had a large voluminous bout of emesis. Described the CP as a pressure/squeezing , intense enough that she took off her bra. No LE edema. Hx of an [place] s/p stent in 2013. On carvedilol and lisinopril for HTN. On Plavix for the stent; not with ASA and no other anticoagulation. She believes her last catheterization was done approxiamtely 2 years ago through [facility] and normal and believes she had a stress test done a few years ago. No F/C. Has had a chronic cough. Did not get diaphoretic. Unknown if Hx of HLD but is on atorvastatin. Her son unexpectedly at 34 years old and no autopsy was performed to know etiology. Otherwise no Fam Hx. Non smoker. Non diabetic. Related Data Home Medications Medication Instructions Recorded Confirmed atorvastatin 80 mg tablet (Lipitor) 80 mg PO HS 04/08/19 10/25/23 carvedilol 3.125 mg tablet 3.125 mg PO Q12H 04/08/19 10/25/23 multivitamin 1 tablet PO DAILY 04/08/19 10/25/23 omega-3 fatty acids 1,000 mg 1,200 mg PO BID 04/08/19 10/25/23 capsule (Fish Oil Concentrate) clopidogrel 75 mg tablet 75 mg PO DAILY 10/09/19 10/25/23 nitroglycerin 0.4 mg sublingual 0.4 mg sublingual Q5MIN PRN Chest 10/25/22 10/25/23 tablet Pain calcium-vitamin D3 See Rx Instructions .Route .COMPLEX 10/25/23 10/25/23 Allergies Allergy/AdvReac Type Severity Reaction Status Date / Time No Known Allergies Allergy Verified 10/25/23 21:40 [facility] Past Medical History Medical History IRVIN positive (~07/2020) CAD (coronary artery disease) Current mild episode of major depressive disorder without prior episode Elevated liver enzymes Erythrocytosis HTN (hypertension) Hypertensive heart disease without heart failure IFG (impaired fasting glucose) MDD (major depressive disorder) Metabolic syndrome Mixed hyperlipidemia Obesity Old myocardial infarction 2013. sees dr. kaminski Osteoarthritis of left knee Osteoarthritis of right hip Pain of right hip Preoperative clearance Pulmonary HTN RVSP 40 mmHg on 2018 echo Right hand dominant Weakness Wellness examination Surgical History Surgical History H/O right breast biopsy 04/13/20 stereotactic bx History of coronary artery stent placement 2013 1 stent History of total right hip arthroplasty S/P cataract surgery Status post arterial stent Family History Family History Father Hypertension Cerebrovascular accident Mother Family history of coronary artery disease Son , @34yo; unknown cause; no autopsy performed No problems noted. Social History Social History Smoking packs per day: 1 Smoking cigarettes per day: 20.0 Years smoked: 10 Smoking pack-years: 10.[address]
[2023-10-25 16:32] LABS: Basophils Percent Auto 0.1 % (0.2-1.2); Eosinophils Absolute Auto 0.1 K/mm3 (0-0.3); Eosinophils Percent Auto 1.2 % (0-4.4); Hemoglobin 15.1 g/dL (12.0-15.0); Immature Granulocyte Absolute 0.01 K/mm3 (0.00-0.031); Immature Granulocyte Percent A 0.1 % (0-0.5); Lymphocytes Absolute Auto 1.49 K/mm3 (0.9-3.2); Lymphocytes Percent Auto 22.3 % (18.3-44.2); Mean Corpuscular HGB Conc 34.3 g/dl (32-36); Mean Corpuscular Volume 96.1 fl (80-100); Mean Platelet Volume 9.3 fl (7.4-10.4); Monocytes Absolute Auto 0.7 K/mm3 (0.1-0.6); Monocytes Percent Auto 10.9 % (2.6-8.5); Neutrophils Absolute Auto 4.4 K/mm3 (1.3-6.7); Neutrophils Percent Auto 65.4 % (45.5-73.1); Platelet Count Result 293 k/mm3 (150-375); Red Blood Count 4.58 M/mm3 (4.2-5.4); Red Cell Distribution Width 13.7 % (11.5-14.5); White Blood Count 6.7 K/mm3 (4.5-10.0)
[2023-10-25 16:41] LABS: Alanine Aminotransferase 27 U/L (6-35); Albumin Level 4.4 g/dL (3.5-5.1); Alkaline Phosphatase 97 U/L (38-126); Anion Gap 7 mmol/L (4-12); Aspartate Amino Transferase 85 U/L (14-36); Bilirubin,Total 1.1 mg/dL (0.2-1.3); Blood Urea Nitrogen 13 mg/dL (7-17); Calcium 9.3 mg/dL (8.4-10.2); Carbon Dioxide 25 mmol/L (22-30); Chloride 108 mmol/L (98-107); Estimated CRCL calculation 95 ml/min; Estimated Glomerular Filt Rate > 60; Glucose 108 mg/dL (65-110); Lipase 105 U/L (23-300); Sodium 140 mmol/L (137-145)
[2023-10-25 16:53] LABS: Troponin I < 0.012 ng/mL (0.000-0.034)
[2023-10-25 18:57] LABS: INR 1.1; Prothrombin Time 14.2 Seconds (11.1-14.7)
[2023-10-25 18:58] LABS: Partial Thromboplastin Time 34.9 Seconds (22.3-36.8)
--- NOTE | 2023-10-25 19:09 | ECG_ITS ---
[facility] [address] Test Date: 2023-10-25 Pat Name: Elyse Colon Department: Room: Gender: F Nicker And Breaker: : 1945 Requested By: America Remy Order Number: [id number] Jose MD: Albert Michael M.D. Measurements Intervals [place] Rate: 51 P: 36 ME: 200 QRS: -5 QRSD: 86 T: 2 QT: 429 QTc: 398 Interpretive Statements SINUS BRADYCARDIA WITH SINUS ARRHYTHMIA CANNOT RULE OUT PREVIOUS INFERIOR MYOCARDIAL INFARCTION ABNORMAL ECG Compared to ECG 10/25/2023 16:26:53 NO DIFFERENCE Electronically Signed On 10-26-2023 09:01:16 CDT by Albert Michael M.D.
[2023-10-25 19:45] LABS: Troponin I < 0.012 ng/mL (0.000-0.034)
--- NOTE | 2023-10-25 21:35 | ADMGEN ---
This patient, Elyse Colon, was admitted to IMU Room 203-01. Patient/family oriented to hospital policies and general routines including ID bracelet, bed and alarms, visiting hours, pain management, procedures, bathroom and other care routines, personal items, smoking policy, room service/diet, and visiting hours. Information on how to activate the Rapid Response Team has been discussed. Patient/Family are encouraged to report perceived risks to care and to ask questions if they do not understand what they are told or what they should do.
--- NOTE | 2023-10-25 22:42 | PM.IMHP ---
H&P: HPI History of Present Illness Date/Time: 10/25/23 22:42 Chief Complaint: Patient came to the ER for evaluation of chest pain Narrative: 77 years old white female with chronic medical issues was as her home when she started having chest pain, intensity 7/10 located in the anterior chest, no association with, sweating, shortness of breath, or palpitations. No radiation to neck, jaw or upper arm. Patient took nitroglycerin helped with her symptoms. She came to the ER for evaluation and work up. Patient have 3 sets of cardiac enzymes done which are negative so far. She has a heart score of 5. ER physician spoke with aerial crop duster who wanted to place her under observation status for possible stress testing, further evaluation and workup. Review of Systems Review of Systems: 14 systems were reviewed with pertinent positives and negatives per HPI. Except as documented in the HPI/progress notes, all other systems were reviewed and are negative. All systems reviewed & are unremarkable except as noted in HPI and below PMFSH Past Medical History Medical History IRVIN positive (~07/2020) CAD (coronary artery disease) Current mild episode of major depressive disorder without prior episode Elevated liver enzymes Erythrocytosis HTN (hypertension) Hypertensive heart disease without heart failure IFG (impaired fasting glucose) MDD (major depressive disorder) Metabolic syndrome Mixed hyperlipidemia Obesity Old myocardial infarction 2013. sees dr. kaminski Osteoarthritis of left knee Osteoarthritis of right hip Pain of right hip Preoperative clearance Pulmonary HTN RVSP 40 mmHg on 2019 echo Right hand dominant Weakness Wellness examination Surgical History Surgical History H/O right breast biopsy 04/13/20 stereotactic bx History of coronary artery stent placement 2013 1 stent History of total right hip arthroplasty S/P cataract surgery Status post arterial stent Family History Family History Father Hypertension Cerebrovascular accident Mother Family history of coronary artery disease Social History Social History Smoking packs per day: 1 Smoking cigarettes per day: 20.0 Years smoked: 10 Smoking pack-years: 10.00 Smoking status: Former smoker Tobacco type: cigarettes Second hand tobacco smoke exposure: No Smoking end date: 05/21/72 Alcohol intake: current Drinks per week: 14 Alcohol use details: 2-3 glasses of wine per evening - has quit for past few months Substance use: never Substance use type: does not use Do You Feel Safe in your Home?: Yes Lack of Transportation: No Lack of Food: Never True Current Housing: I Have Housing Concerned About Future Housing: No Difficulty Paying Gas/Electric Bills: No Difficulty Paying for Meds: No Currently Unemployed: No Education: Decline to Answer Difficulty w/ Childcare or Family Care: No Living arrangements: alone Occupation/Education: occupation 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 Gender identity (if verbalized by the patient): Female Sexual Orientation (if Verbalized by the Patient): Straight or Heterosexual Spiritual care concerns: No Agree to blood products: Yes Meds Home Medications and Allergies Home Medications Medication Instructions Recorded Confirmed Type atorvastatin 80 mg tablet (Lipitor) 80 mg PO HS 04/08/19 10/25/23 History carvedilol 3.125 mg tablet 3.125 mg PO Q12H 04/08/19 10/25/23 History multivitamin 1 tablet PO DAILY 04/08/19 10/25/23 History omega-3 fatty acids 1,000 mg 1,200 mg PO BID 04/08/19 10/25/23 History capsule (Fish Oil Concentrate) clopidogrel 75 mg tablet 75 mg PO DAILY 10/09/19 10/25/23 History nitroglycerin 0.4 mg sublingual 0.4 mg sublingual Q
[2023-10-25 23:35] LABS: Troponin I < 0.012 ng/mL (0.000-0.034)
[2023-10-26] VITALS (14 sets, daily range): BP systolic 136–155; BP diastolic 64–80; PULSE 56–76; RESP 14–20; TEMP 36.2–37.4; O2SAT 91–96
--- NOTE | 2023-10-26 | EST_ITS ---
Patient Info Name: Elyse Colon Age: 77 years : 1945 Gender: Female Ht: 66 in Wt: 205 lbs BSA: 2.12 m2 HR: 60 bpm BP: 143 / 91 mmHg Heart Rhythm: Sinus Rhythm Exam Date: 10/26/2023 12:25 PM Exam Location: Echo Lab Patient Status: Inpatient Admit Date: 10/25/2023 Staff Ordering Physician: Albert Michael MD Attending Provider: Herbert Andrew MD Exercise Technologist: Mesha Washington, MEL Nurse: Leana Barton APN Exam Type: CA stress amanda w NM Study Info Indications R07.89 - Other chest pain A regadenoson stress test was performed. Summary 1. Normal sinus rhythm, within normal limits. 2. No ST or T-wave abnormality noted following Lexiscan infusion. 3. Clinically and electrocardiographically unremarkable Lexiscan nuclear stress test. 4. Myocardial perfusion imaging study to be reported by Radiology. Protocol: Lexiscan Stress ECG Details Stage: REST Duration (min): 1 min : 20 sec HR (bpm): 58 SBP (mmHg): 143 DBP (mmHg): 91 Stage: REST Duration (min): 5 min : 16 sec HR (bpm): 65 SBP (mmHg): 143 DBP (mmHg): 91 Stage: STAGE 1 Duration (min): 0 min : 59 sec HR (bpm): 79 SBP (mmHg): 166 DBP (mmHg): 102 Stage: RECOVERY Duration (min): 1 min : 0 sec HR (bpm): 81 SBP (mmHg): 166 DBP (mmHg): 102 Stage: RECOVERY Duration (min): 2 min : 0 sec HR (bpm): 74 SBP (mmHg): 166 DBP (mmHg): 102 Stage: RECOVERY Duration (min): 3 min : 0 sec HR (bpm): 72 SBP (mmHg): 166 DBP (mmHg): 102 Stage: RECOVERY Duration (min): 3 min : 18 sec HR (bpm): 75 SBP (mmHg): 157 DBP (mmHg): 93 Rest HR: 65 bpm Peak HR: 85 bpm Rest Sys BP: 143 mmHg Peak Sys BP: 166 mmHg Max Pred HR: 145 bpm % Max Pred HR: 59 % Target HR: 123 bpm Max RPP: 14,110 bpm*mmHg Termination Reason: Completed protocol Cardiac Symptoms: None Total Time: 1 min : 0 sec Rest Kat BP: 91 mmHg Peak Kat BP: 102 mmHg Total Dose: 0.4 mg Resting ECG Normal sinus rhythm, within normal limits. Stress ECG No ST or T-wave abnormality noted following Lexiscan infusion. Report Signatures
--- NOTE | 2023-10-26 02:00 | ECHO_ITS ---
Patient Info Name: Elyse Colon Age: 77 years : 1945 Gender: Female Ht: 66 in Wt: 205 lbs BSA: 2.12 m2 HR: 60 bpm BP: 155 / 74 mmHg Heart Rhythm: Sinus Rhythm Technical Quality: Fair Exam Date: 10/26/2023 9:21 AM Exam Location: Echo Lab Patient Status: Inpatient Admit Date: 10/25/2023 Staff Ordering Physician: Herbert Andrew MD Well Digger: Fatmata Stearns RDCS Attending Provider: Herbert Andrew MD Exam Type: CA echo doppler color flow Study Info Indications - hx cad R07.9 - Chest pain, unspecified Complete two-dimensional, color flow and Doppler transthoracic echocardiogram is performed. Summary 1. Complete two-dimensional, color flow and Doppler transthoracic echocardiogram is performed. 2. Mild concentric left ventricular hypertrophy with normal contractility, no wall motion abnormalities. 3. Mildly sclerotic aortic valve with good leaflet separation. 4. Trivial mitral and tricuspid regurgitation. Left Ventricle Left ventricular chamber dimension is normal. Left ventricular systolic function is normal, estimated at 65-70%. There is mild concentric increased left ventricular wall thickness. The left ventricular diastolic function is grade I diastolic dysfunction. Right Ventricle Right ventricular chamber dimension is normal. Left Atria Left atrial chamber dimension is severely enlarged. Right Atria Right atrial chamber dimension is normal. Aortic Valve The aortic valve is trileaflet. There is mild aortic valve sclerosis. Pulmonic Valve The pulmonic valve is not well visualized. Mitral Valve The mitral valve has normal leaflets. There is trace mitral valve regurgitation. Tricuspid Valve The tricuspid valve leaflets are normal. There is mild tricuspid valve regurgitation. Pericardium/Pleural The pericardium appears normal. Aorta The aortic root size at the sinus of Valsalva is normal. Left Ventricular Outflow Tract Name Value Normal LVOT 2D LVOT Diameter 2.0 cm LVOT Doppler LVOT Peak Gradient 6 mmHg LVOT Mean Gradient 4 mmHg LVOT VTI 30 cm LVOT VTI/AV VTI Ratio 0.8 LVOT Stroke Volume 95 ml LVOT CO 6.2 l/min LVOT CI 2.9 l/min/m2 Pulmonic Valve Name Value Normal RVOT Doppler RVOT Peak Gradient 3 mmHg PV Doppler PV Peak Gradient 5 mmHg Mitral Valve Name Value Normal MV Doppler MV Decel [place] 340 cm/s2 MV P
[2023-10-26 04:20] LABS: Basophils Percent Auto 0.2 % (0.2-1.2); Eosinophils Absolute Auto 0.1 K/mm3 (0-0.3); Eosinophils Percent Auto 1.7 % (0-4.4); Hematocrit 43.6 % (37.0-47.0); Hemoglobin 14.4 g/dL (12.0-15.0); Immature Granulocyte Absolute 0.02 K/mm3 (0.00-0.031); Immature Granulocyte Percent A 0.3 % (0-0.5); Lymphocytes Absolute Auto 1.16 K/mm3 (0.9-3.2); Lymphocytes Percent Auto 17.7 % (18.3-44.2); Mean Corpuscular Hemoglobin 32.4 pg (26-34); Mean Platelet Volume 9.7 fl (7.4-10.4); Monocytes Absolute Auto 0.7 K/mm3 (0.1-0.6); Monocytes Percent Auto 11.3 % (2.6-8.5); Neutrophils Absolute Auto 4.5 K/mm3 (1.3-6.7); Neutrophils Percent Auto 68.8 % (45.5-73.1); Platelet Count Result 294 k/mm3 (150-375); Red Blood Count 4.45 M/mm3 (4.2-5.4); Red Cell Distribution Width 13.5 % (11.5-14.5); White Blood Count 6.6 K/mm3 (4.5-10.0)
[2023-10-26 04:35] LABS: Anion Gap 3 mmol/L (4-12); Blood Urea Nitrogen 15 mg/dL (7-17); Calcium 9.1 mg/dL (8.4-10.2); Carbon Dioxide 29 mmol/L (22-30); Chloride 107 mmol/L (98-107); Cholesterol 173 mg/dL (0-200); Estimated CRCL calculation 93 ml/min; Estimated Glomerular Filt Rate > 60; Glucose 102 mg/dL (65-110); HDL Direct 74 mg/dL; Magnesium 1.9 mg/dL (1.6-2.3); Phosphorus 3.8 mg/dL (2.5-4.5); Potassium 3.6 mmol/L (3.4-5.0); Sodium 139 mmol/L (137-145); Triglycerides 148 mg/dL (<150)
[2023-10-26 04:45] LABS: LDL Cholesterol Direct 86 mg/dL
--- NOTE | 2023-10-26 07:26 | PM.IMPN ---
Progress Note: A&P Assessment and Plan (1) Chest pain, moderate coronary artery risk: Code(s): R07.9 - Chest pain, unspecified Status: Acute Assessment and Plan: - tele monitoring - nitroglycerin prn asa given in er-continue nitial EKG and 3 sets of cardiac enzymes are negative Fasting lipid profile ordered prior Full 2-D echo with color-flow and doppler ordered in am to evaluate cardiac structure and function Keep patient NPO after midnight except meds Cardiology consultation in am for evaluation, further treatment recommendations and work up DC planning once chest pain is resolved, patient is clinically stable and cleared by Cardiology (2) Chronic interstitial lung disease: Code(s): J84.9 - Interstitial pulmonary disease, unspecified Status: Acute (3) Cardiomegaly: Code(s): I51.7 - Cardiomegaly Status: Acute (4) Pulmonary interstitial fibrosis: Code(s): J84.10 - Pulmonary fibrosis, unspecified Status: Acute (5) Alcohol dependence, in remission: Code(s): F10.21 - Alcohol dependence, in remission Status: Acute (6) MDD (major depressive disorder): Code(s): F32.9 - Major depressive disorder, single episode, unspecified Status: Acute (7) Secondary polycythemia: Code(s): D75.1 - Secondary polycythemia Status: Acute (8) Low Back Pain: Code(s): M54.50 - Low back pain, unspecified Status: Acute (9) TAZ (obstructive sleep apnea): Code(s): G47.33 - Obstructive sleep apnea (adult) (pediatric) Status: Acute (10) Obesity: Code(s): E66.9 - Obesity, unspecified Status: Acute (11) Peripheral neuropathy: Qualifiers: Peripheral neuropathy type: polyneuropathy, unspecified Qualified Code(s): G62.9 - Polyneuropathy, unspecified Code(s): G62.9 - Polyneuropathy, unspecified Status: Acute (12) BMI 33.0-33.9,adult: Code(s): Z68.33 - Body mass index [BMI] 33.0-33.9, adult Status: Acute (13) Antiplatelet or antithrombotic long-term use: Code(s): Z79.02 - terminal block assembler (current) use of antithrombotics/antiplatelets Status: Acute (14) CAD (coronary artery disease): Code(s): I25.10 - Atherosclerotic heart disease of [place] coronary artery without angina pectoris Status: Chronic (15) Pulmonary HTN: Code(s): I27.20 - Pulmonary hypertension, unspecified Status: Acute (16) HTN (hypertension): Qualifiers: Hypertension type: essential hypertension Qualified Code(s): I10 - Essential (primary) hypertension Code(s): I10 - Essential (primary) hypertension Status: Chronic (17) Metabolic syndrome: Code(s): E88.81 - Metabolic syndrome and other insulin resistance Status: Acute (18) Mixed hyperlipidemia: Code(s): E78.2 - Mixed hyperlipidemia Status: Chronic (19) History of coronary artery stent placement: Code(s): Z95.5 - Presence of coronary angioplasty implant and graft Status: Acute (20) Old myocardial infarction: Code(s): I25.2 - Old myocardial infarction Status: Acute (21) Chronic insomnia: Code(s): F51.04 - Psychophysiologic insomnia Status: Acute (22) OAB (overactive bladder): Code(s): N32.81 - Overactive bladder Status: Acute Time Spent With Patient Time with patient: 25 - 35 minutes Subjective Date/time seen: 10/26/23 07:26 Interval history: 77 years old white female PMH hld, old [place], OA,HTN, CAD s/p stent 2013, elavated liver emzymesadmitted for chest pain, intensity 7/10 located in the anterior chest, no association with, sweating, shortness of breath, or palpitations. No radiation to neck, jaw or upper arm. Patient took nitroglycerin helped with her symptoms. She came to the ER for evaluation and work up. Patient have 3 sets of cardiac enzymes done which are negative so far. She has a heart score of 5. Shredder Tender Peat was con
--- NOTE | 2023-10-26 07:41 | PM.CNCAR ---
Assessment and Plan Assessment and plan (1) Chest pain, moderate coronary artery risk: Code(s): R07.9 - Chest pain, unspecified Status: Acute Plan This is a 77-year-old lady with known coronary disease a remote history of inferior [place] and stenting of the right coronary artery 10 years ago. Her presenting chest pain of course is of concern on the positive side in the face of several hours of pain her troponin levels have remained completely normal indicating a low probability that the symptoms are related to myocardial ischemia. Because of her history I will arrange for Lexiscan nuclear stress test to be done this morning. Albert Michael MD [facility] History of Present Illness History of Present Illness Consult date/time: 10/26/23 07:41 Reason For Visit: Chest pain; Moderate risk (HEART score 5) Narrative: This is a 77-year-old woman who is unknown to me prior to this consultation this morning. She follows in our office with my partner Dr. Romero because of a history of coronary artery disease. She came to the emergency room yesterday afternoon because of some chest tightness and pain that was happening at her home. She states that she was having a fine day and just was relaxing on her patio when she started to notice central chest heaviness. She says that she did not think this was too severe and did not think it was a serious matter because she sat there for a couple of hours hoping that it would just fade away. After couple of hours it became associated with some nausea and some retching and then she decided to take some nitroglycerin that she had a prescription for at home. She took a couple of nitro tablets which she thinks improved the pain but did not relieve it entirely. She then came to the emergency room for evaluation. In the ED she states that the pain seemed to subside very quickly after she arrived here. She was given chewable aspirin tablets and then became free of this symptom. She feels well now and denies any complaints. She leads an active lifestyle and does not have any exertional symptoms that she has been experiencing in the way of chest pain or dyspnea. She denies any sense of palpitations orthopnea PND or edema. She is known to have coronary artery disease and presented 10 years ago with inferior wall myocardial infarction. She underwent PCI of the right coronary artery with a drug-eluting stent according to the records and has done well since then. In the intervening year she has had a couple of episodes of recurrent chest pain that created concern. She has had a couple of nuclear stress tests which have been consistently negative. She is known to have normal left ventricular systolic function after the AZ from 10 years ago. Review of Systems Constitutional: Constitutional: Reports no additional constitutional complaints Eyes: Eyes: Reports no additional eye complaints ENT: Reports system reviewed and no additional complaints, except as documented Cardiovascular: Cardiovascular: Reports no additional cardiovascular complaints Respiratory: Respiratory: Reports no additional respiratory complaints Gastrointestinal: Gastrointestinal: Reports no additional gastrointestinal complaints Genitourinary: Genitourinary: Reports no additional female genitourinary complaints Musculoskeletal: Musculoskeletal: Reports no additional musculoskeletal complaints Integumentary/Breasts: Skin/Breast: Reports system reviewed and no additional complaints, except as docu Neurologic: Reports system reviewed and no additional complaints, except as documented Endocrine: Endocrine: Reports no additional endocrine complaints Hematologic/Lymphatic: Hematologic/Lymphatic: Reports no additional hematologic/lymphatic complaints Allergic/Immunologic: Allergic/Immunologic: Reports no additional allergic/immunologic complaints PMFSH Past Medical History Medical History
[2023-10-26] MEDS: oxyBUTYnin CHLORIDE 5 MG TABLET PO ×2 (08:59→17:40)
[2023-10-26] MEDS: ESCITALOPRAM OXALATE 10 MG TABLET PO (08:59)
[2023-10-26] MEDS: lisinopriL 10 MG TABLET 30 MG PO (08:59)
[2023-10-26] MEDS: OMEGA 3 POLYUNSAT FATTY ACIDS 1 GM CAP PO ×2 (08:59→17:39)
[2023-10-26] MEDS: CLOPIDOGREL BISULFATE 75 MG TABLET PO (09:00)
[2023-10-26] MEDS: MULTIVITAMINS THERAPEUTIC TAB (*BKC) 1 TABLET PO (09:00)
[2023-10-26] MEDS: carvediloL 3.125 MG TABLET PO (09:00)
--- NOTE | 2023-10-26 18:12 | PC.NURSE ---
Spoke with Dr. Michael regarding discharge status. Echocardiogram and Lexiscan were both negative. Dr. Michael ok with discharge.
--- NOTE | 2023-10-27 06:58 | PM.DS ---
DS: Admitting Diagnosis Discharge Date 10/26/23 Admitting Diagnosis chest pain DS: Discharge Diagnosis Discharge Diagnosis (1) Chest pain, moderate coronary artery risk: Code(s): R07.9 - Chest pain, unspecified Status: Acute Assessment and Plan: - tele monitoring - nitroglycerin prn asa given in er-continue nitial EKG and 3 sets of cardiac enzymes are negative Fasting lipid profile ordered prior Full 2-D echo with color-flow and doppler ordered in am to evaluate cardiac structure and function Keep patient NPO after midnight except meds Cardiology consultation in am for evaluation, further treatment recommendations and work up DC planning once chest pain is resolved, patient is clinically stable and cleared by Cardiology (2) Chronic interstitial lung disease: Code(s): J84.9 - Interstitial pulmonary disease, unspecified Status: Acute (3) Cardiomegaly: Code(s): I51.7 - Cardiomegaly Status: Acute (4) Pulmonary interstitial fibrosis: Code(s): J84.10 - Pulmonary fibrosis, unspecified Status: Acute (5) Alcohol dependence, in remission: Code(s): F10.21 - Alcohol dependence, in remission Status: Acute (6) MDD (major depressive disorder): Code(s): F32.9 - Major depressive disorder, single episode, unspecified Status: Acute (7) Secondary polycythemia: Code(s): D75.1 - Secondary polycythemia Status: Acute (8) Low Back Pain: Code(s): M54.50 - Low back pain, unspecified Status: Acute (9) TAZ (obstructive sleep apnea): Code(s): G47.33 - Obstructive sleep apnea (adult) (pediatric) Status: Acute (10) Obesity: Code(s): E66.9 - Obesity, unspecified Status: Acute (11) Peripheral neuropathy: Qualifiers: Peripheral neuropathy type: polyneuropathy, unspecified Qualified Code(s): G62.9 - Polyneuropathy, unspecified Code(s): G62.9 - Polyneuropathy, unspecified Status: Acute (12) BMI 33.0-33.9,adult: Code(s): Z68.33 - Body mass index [BMI] 33.0-33.9, adult Status: Acute (13) Antiplatelet or antithrombotic long-term use: Code(s): Z79.02 - intermediate (current) use of antithrombotics/antiplatelets Status: Acute (14) CAD (coronary artery disease): Code(s): I25.10 - Atherosclerotic heart disease of [place] coronary artery without angina pectoris Status: Chronic (15) Pulmonary HTN: Code(s): I27.20 - Pulmonary hypertension, unspecified Status: Acute (16) HTN (hypertension): Qualifiers: Hypertension type: essential hypertension Qualified Code(s): I10 - Essential (primary) hypertension Code(s): I10 - Essential (primary) hypertension Status: Chronic (17) Metabolic syndrome: Code(s): E88.81 - Metabolic syndrome and other insulin resistance Status: Acute (18) Mixed hyperlipidemia: Code(s): E78.2 - Mixed hyperlipidemia Status: Chronic (19) History of coronary artery stent placement: Code(s): Z95.5 - Presence of coronary angioplasty implant and graft Status: Acute (20) Old myocardial infarction: Code(s): I25.2 - Old myocardial infarction Status: Acute (21) Chronic insomnia: Code(s): F51.04 - Psychophysiologic insomnia Status: Acute (22) OAB (overactive bladder): Code(s): N32.81 - Overactive bladder Status: Acute Plan Final dx:CAD, old [place] DS: Summary Hospital Course Hospital Course: 77 years old white female PMH hld, old [place], OA,HTN, CAD s/p stent 2013, elavated liver emzymesadmitted for chest pain, intensity 7/10 located in the anterior chest, no association with, sweating, shortness of breath, or palpitations. No radiation to neck, jaw or upper arm. Patient took nitroglycerin helped with her symptoms. She came to the ER for evaluation and work up. Patient have 3 sets of cardiac enzymes done which are negative so far. She has
== END 2023-10-26 18:53 | disposition home or self-care (01) ==
LOC: ANHED 16:38 → ANHIMU 21:28
PROVIDERS: Admitting Provider Family Medicine; Emergency Provider Student in an Organized Health Care Education/Training Program; PCP Family Medicine; Visit Provider Internal Medicine
DX: R07.9 Chest pain, unspecified (principal); J84.9 Interstitial pulmonary disease, unspecified; R79.89 Other specified abnormal findings of blood chemistry; I25.10 Atherosclerotic heart disease of native coronary artery without angina pectoris; F32.9 Major depressive disorder, single episode, unspecified; I11.9 Hypertensive heart disease without heart failure; E78.2 Mixed hyperlipidemia; I25.2 Old myocardial infarction; I27.20 Pulmonary hypertension, unspecified; F10.21 Alcohol dependence, in remission; J84.10 Pulmonary fibrosis, unspecified; D75.1 Secondary polycythemia; G47.33 Obstructive sleep apnea (adult) (pediatric); M54.50 Low back pain, unspecified; G62.9 Polyneuropathy, unspecified; E88.819 Insulin resistance, unspecified; F51.04 Psychophysiologic insomnia; N32.81 Overactive bladder; E66.9 Obesity, unspecified; Z68.33 Body mass index [BMI] 33.0-33.9, adult; Z79.02 Long term (current) use of antithrombotics/antiplatelets; Z95.5 Presence of coronary angioplasty implant and graft; Z87.891 Personal history of nicotine dependence
CPT/HCPCS: 36415; 71046; 78452; 80048; 80053; 80061; 83690; 83735; 84100; 84484; 85025; 85610; 85730; 93005; 93017; 93306; 99285; A9270; A9502; G0378; J2785

== ENCOUNTER 2024-01-31 10:05 | Outpatient (CLI) | payer OTHER, SELFPAY ==
--- NOTE | 2024-02-01 15:45 | WPDPFTINT ---
PFT Procedure Performed PFT Procedure Performed Plethysmography (Lung Vol) Diffusing Cap (DLCO) Flow Vol Loop Spirometry w/o Bronchodil PFT Interpretation Lung volumes were measured with the body plethysmography method. Lung volumes are unremarkable. Spirometry showed normal expiratory flow rates and a normal FEV1 to FVC ratio 80%. No post bronchodilator study was conducted. Lung diffusion capacity is within the normal range. In comparison to previous study in December of 2022, the spirometric, lung volume and lung diffusion capacity measurements have been essentially unchanged. Impression: Spirometry, lung volumes, lung diffusion capacity all within the normal range.
--- NOTE | 2024-02-01 15:50 | WPDSIXMINUTE ---
Six Minute Walk Procedure Procedure Performed Pulmonary Stress Test (6 min walk) Six Minute Walk Six Minute Walk: This 6 minute walk test was carried out with the patient breathing room air. The pre-walk baseline oxyhemoglobin saturation was 93%. The patient walked 365 m with no stops during testing. During the walk, the oxyhemoglobin saturation remained in the range of 91% to 92%. Impression: No evidence of oxyhemoglobin desaturation on this testing
== END 2024-01-31 10:06 | disposition home or self-care (01) ==
PROVIDERS: PCP Family Medicine; Visit Provider Internal Medicine Pulmonary Disease
DX: J84.10 Pulmonary fibrosis, unspecified (principal)
CPT/HCPCS: 94060; 94618; 94726; 94729

== ENCOUNTER 2024-01-31 15:13 | Outpatient (CLI) | payer OTHER, SELFPAY ==
--- NOTE | ~2024-01-31 | MM_ITS ---
EXAMINATION: MM screening [facility] BI w danial HISTORY: Screening mammogram TECHNIQUE: Craniocaudal and mediolateral oblique 3-D tomosynthesis images were obtained and synthetic 2-D images were generated. CAD analysis was submitted and interpreted. COMPARISON: 12/20/2022, 08/23/2021, 01/23/2020 BREAST PARENCHYMAL COMPOSITION:Not Dense. There are scattered areas of fibroglandular density. FINDINGS: No suspicious mass, calcification, or architectural distortion are identified in either isaiah ast to suggest malignancy. There has been no suspicious interval change. IMPRESSION: No mammographic evidence of malignancy. Recommend routine screening mammography in one year. BI-RADS Category 1: Negative Reviewed, dictated and finalized at location .
== END 2024-01-31 15:14 | disposition home or self-care (01) ==
LOC: ANHIMG 15:15
PROVIDERS: PCP Family Medicine; Visit Provider Family Medicine
DX: Z12.31 Encounter for screening mammogram for malignant neoplasm of breast (principal)
CPT/HCPCS: 77063; 77067; 94060; 94618; 94726; 94729

== ENCOUNTER 2024-03-17 14:54 | Outpatient (CLI) | payer OTHER, SELFPAY ==
--- NOTE | ~2024-03-17 | MR_ITS ---
MRI of the lumbar spine Clinical History: Radiculopathy Technique: Axial T2-weighted images, and sagittal T1-weighted, T2-weighted, and T2 fat-sat images wer e acquired. COMPARISON: 01/24/2022 Findings: No acute fracture. Osseous line unchanged. Stable minimal grade 1 retrolisthesis of L2 over L3. No suspicious bone marrow signal abnormality seen. At L1-L2, there is mild disc bulge and moderate facet arthropathy. No central canal stenosis. There i s probable mild to moderate bilateral neural foraminal narrowing. At L2-L3, there is disc bulge and moderate facet arthropathy. No mandie central canal stenosis. There is moderate to advanced right neural foraminal narrowing. There is moderate left neural foraminal hernan rowing. At L3-L4, there is minimal disc bulge with severe facet arthropathy. No mandie central canal stenosis. There is mild to moderate bilateral neural foraminal narrowing. At L4-L5, there is disc bulge and severe facet arthropathy, with moderate to severe spinal canal sten osis/thecal sac compression. There is moderate to advanced right neural foraminal narrowing, and mode rate left neural foraminal narrowing. At L5-S1, there is central disc protrusion with severe facet arthropathy. No central canal stenosis. There is moderate to advanced left neural foraminal narrowing, and minimal right neural foraminal hernan rowing. Paravertebral soft tissues are unremarkable. Impression: Advanced degenerative spondylosis, as detailed above. Reviewed, dictated and finalized at [facility]. Impression: Advanced degenerative spondylosis, as detailed above.
== END 2024-03-17 14:55 | disposition home or self-care (01) ==
LOC: GOSHIMG 14:55
PROVIDERS: PCP Family Medicine; Visit Provider Nurse Practitioner Family
DX: M47.816 Spondylosis without myelopathy or radiculopathy, lumbar region (principal)
CPT/HCPCS: 72148

== ENCOUNTER 2025-03-18 15:25 | Outpatient (CLI) | payer OTHER, SELFPAY ==
--- OUTSIDE RECORDS SUMMARY | 2009-08-04 08:30 | XMS_ITS | Continuity of Care Document ---
Author Organization [facility] Address [address] [place] [address] [facility] [address] [place] [address] Phone Care Team Providers Care Binder Roller Name Role Phone Iam Cline Unavailable Unavailable Procedures Procedure Date Office/outpatient Visit, [facility] Advance Directives Directive Yes / No Effective Date File Name No Information Encounters Encounter Description Practice Location Reason(s) For Visit Diagnoses Date Provider Providers Copied on Encounter Office/outpat ient Visit, [facility], [address], [place], [place], [id number], tel:[phone] [facility] No Information [address]ar[address] Vitale. [address] [facility] [address], [address], [place]. tel:[phone] Referring Provider: Justin Key MD , [address] [facility] [address], [place], [address]. tel:[phone] Family History Family Member Type Diagnosis Age At Onset No Information Payers Payer name Insurance type Covered constitution party ID Authoriza tidelfin(s) [facility] CI [id number] Social History Type Description Quantity Date Captured Comments Sex Female Smoking Status No Information Chief Complaint And Reason For Visit No Information Reason For Referral Reason For Referral No Information History Of Present Illness Encounter Date Complaint History Of Prese nt Illness No Information Functional Status Date Functional Assessmen t No Information Instructions Date Instruction Additional Infor mation No Information Assessments Type Assessment Date No Information Patient Care Teams Name Effective Dates (start - stop) Status Members No Information
--- OUTSIDE RECORDS SUMMARY | 2017-02-26 07:10 | XMS_ITS | Continuity of Care Document ---
Author Organization [facility] Address [id number] [place] [address] [address] [place] [address] Phone Care Team Providers Care Sql Report Analyst Name Role Phone Marlyn BARRETT, Iam Unavailable Unavaila ble Procedures Procedure Date CATARACT SURG W/IOL, 1 STAGE CATARACT SURG W/IOL, 1 STAGE OFFICE/OUTPATIENT VISIT, [facility] OPHTHALMIC BIOMETRY OPHTHALMIC BIOMETRY Advance Directives Directive Yes / No Effective Date File Name No Information Encounters Encounter Description Practice Location Reason(s) For Visit Diagnoses Date Provider Providers Copied on Encounter [facility], [address] [place], [place] [address] [address], [place], [place], [id number], [place] tel:[phone] [facility] No Information 7 Marlyn Vitale. [address], [place], [place], [address], [place]. tel:[phone] Referring Provider: Iam frankel, [address], [place], [address] . tel:[phone] [facility], [address], [place], [place], [address], [place] tel:[phone] [facility] No Information 7 Marlyn Vitale. [address], [place], [place], [address], [place]. tel:[phone] Referring Provider: Iam frankel, [address], [place], [address] . tel:[phone] OFFICE/OUTPA TIENT VISIT, NEW [facility], [address], [place], [place], [address], tel:[phone] [facility] No Information 7 Marlyn Vitale. [address], [place], [place], [address], . tel:[phone] Referring Provider: Iam frankel, [address], [place], [address] . tel:[phone] Family History Family Member Type Diagnosis Age At Onset No Information Payers Payer name Insurance type Covered republican ID Allison mccann(s) [facility] [id number] Social History Type Description Quantity Date Captured [...]
--- OUTSIDE RECORDS SUMMARY | 2017-10-05 09:30 | XMS_ITS | Continuity of Care Document ---
Author Organization [facility] Address [address] [place] [address] [address] [place] [address] Phone Care Team Providers Care Typing Section Chief Name Role Phone Jovani Davis Unavailable Unavailable Procedures Procedure Date PT Re-evaluation Therapeutic Exercise Neuromuscular Re-Ed Hot or Cold Pack Therapeutic Exercise Neuromuscular Re-Ed Hot or Cold Pack Electrical Stimulation PT Evaluation High Complexity 8 Therapeutic Exercise Neuromuscular Re-Ed Therapeutic Exercise Therapeutic Activities Neuromuscular Re-Ed Manual Therapy Hot or Cold Pack Electrical Stimulation Therapeutic Exercise Neuromuscular Re-Ed Manual Therapy Hot or Cold Pack Electrical Stimulation Therapeutic Exercise Neuromuscular Re-Ed Manual Therapy Hot or Cold Pack Electrical Stimulation Therapeutic Exercise Neuromuscular Re-Ed Manual Therapy Hot or Cold Pack Electrical Stimulation Therapeutic Exercise Neuromuscular Re-Ed MANUAL THERAPY Hot or Cold Pack ELECTRICAL STIMULATION PT Evaluation Low Complexity Therapeutic Exercise Mobility: Walking And Moving Limitations -Curent Mobility: Walking And Moving Limitation- Goal Advance Directives Directive Yes / No Effective Date File Name No Information Encounters Encounter Description Practice Location Reason(s) For Visit Diagnoses Date Provider Providers Copied on Encounter [facility] [address], [id number], tel:[phone] [place] back painPain in right hipPain in right kneeStiffness of unspecified joint, not elsewhere classifiedStiffn ess of right hip, not elsewhere classifiedStiffn ess of right knee, not elsewhere classifiedMuscle weakness (generalized) 8 Muehl Jovani. [address] [facility], [facility] [address], [place], [facility], [place]. tel:[phone] [facility] [address] [place] [address], [id number], tel:[phone] [place] Low back painPain in right hipPain in right kneeStiffness of unspecified joint, not elsewhere classifiedStiffn ess of right hip, not elsewhere classifiedStiffn ess of right knee, not elsewhere classifiedMuscle weakness (generalized) 8 Muehl Jovani. [address] [facility], [address], [place], [facility], [place]. tel:[phone] Referring Provider: Paulo Avalos[address] [facility] [address], [place], [facility]. tel:[phone] [facility] [address] [facility] [address], [place], [address], tel:[phone] [place] Low back painPain in right hipPain in right kneeStiffness of unspecified joint, not elsewhere classifiedStiffn ess of right hip, not elsewhere classifiedStiffn ess of right knee, not elsewhere classifiedMuscle weakness (generalized) 8 Muehl Jovnai. [address] [facility], [address], [place], [facility], [place]. tel:[phone] Referring Provider: Saurabh Avalos [address], [place], [address]. tel:[phone] [address], [place], [place], [address], tel:[phone] [place] No Information May-1 1-201 7 Muehl Jovani. [address] [place] [address], [address], [place], [place], [facility], . tel: [phone] Referring Provider: Paulo Aval[address] [place] [address] [address], [place], [place], [facility]. tel:[phone] [address], [place], [place], [address], tel:[phone] [place] No Information May-0 9-201 7 Muehl Jovani. [address] [place] [address], [address], [place], [place], [facility], . tel: [phone] Referring Provider: Paulo Avalos[address] [place] [address] [address], [place], [place], [facility]. tel:[phone] [address], [place], [place], [address], tel:[phone] [place] No Information May-0 5-201 7 Muehl Jovani. [address] [place] [address], [address], [place], [place], [facility], . tel: [phone] Referring Provider: Saurabh Avalos [facility] [address], [place], [address]. tel:[phone], [place], [place], [address], tel:[phone] [place] No Information May-0 3-201 7 Muehl Jovani. [address] [place] [address], [address], [place], [facility], . tel: [phone] Referring Provider: Shashank Allen [address] [place] [address] [address], [place], [address]. tel:[phone], [id number], [place] tel:[phone] [place] No Information Aug- Grecia Hahn. [address] [facility], [address], [place], [address], [place]. tel:[phone] Referring Provider: Shashank Allen [address], [place], [address]. tel:[phone] [facility], [facility] [address], [place], [place], [address], tel:[phone] [place] Low back painOther chronic painPain in left hipOth symptoms and signs involving the musculoskeletal system Grecia Hahn. [address] [facility], [address], [place], [address], [place]. tel:[phone] Referring Provider: Shashank Allen [address], [place], [address]. tel:[phone] Family History Family Member Type Diagnosis Age At Onset No Information Payers Payer name Insurance type Covered alliance party ID Allison mccann(s) [employer] CI [id number] Social History Type Description Quantity Date Captured [...]
--- NOTE | ~2025-03-18 | MM_ITS ---
EXAMINATION: MM screening [facility] BI w danial HISTORY: Screening TECHNIQUE: Craniocaudal and mediolateral oblique 3-D tomosynthesis images were obtained and synthetic 2-D images were generated. CAD analysis was submitted and interpreted. COMPARISON: Comparison to multiple prior studies sequentially, with oldest reviewed study dated 08/23/2021. BREAST PARENCHYMAL COMPOSITION: Not dense: There are scattered areas of fibroglandular density. FINDINGS: There is no evidence of suspicious mass, calcification, or architectural distortion to suggest malignancy in either breast. There has been no suspicious interval change. IMPRESSION: 1. No mammographic evidence of malignancy. 2. Recommend routine screening mammography in one year. BI-RADS Category 1: Negative Reviewed, dictated and finalized at location B.
--- OUTSIDE RECORDS SUMMARY | 2025-03-18 17:29 | XMS_ITS | Clinical Summary ---
Author Organization [facility] Address [address] [place] [id number] Phone Care Team Providers Care Hairspring Assembler Name Role Phone Shashank Allen MD Primary Care Provider [phone] Allergies No known active allergies Medications omega-3 (FISH OIL) 1000 MG capsule 1,000 mg. 01/30/20 15 Active traZODone (DESYREL) 75 MG tablet Take 75 mg by mouth every night. Active aspirin EC 81 MG EC tablet Take 81 mg by mouth daily. 08/29/19 14 Active atorvastatin (LIPITOR) 80 MG tablet Take 80 mg by mouth. 10/02/19 18 Active calcium carbonate (CALCIUM 600) 600 MG tablet Take 600 mg by mouth 2 times daily. Active carvedilol (COREG) 3.125 MG tablet Take 3.125 mg by mouth. 07/15/19 19 Active Clobetasol Propionate 0.05 % lotion Apply topically. Active clopidogrel (PLAVIX) 75 MG tablet Take 75 mg by mouth daily. 08/30/19 19 Active diclofenac (VOLTAREN) 1 % topical gel 01/17/20 18 Active fexofenadine (PATO) 180 MG tablet Take 180 mg by mouth daily. Active fluticasone (FLONASE) 50 MCG/ACT nasal spray Administer 2 sprays into affected nostril(s) daily. Active lisinopril (PRINIVIL,ZEST RIL) 10 MG tablet Take 10 mg by mouth daily. 08/18/19 16 Active multivitamin (THERAGRAN) tablet Take 1 tablet by mouth daily. Active oxybutynin (DITROPAN) 5 MG tablet Take 5 mg by mouth daily. 08/29/19 14 Active sertraline (ZOLOFT) 50 MG tablet Take 50 mg by mouth daily. Active traMADol (ULTRAM) 50 MG tablet Take 50 mg by mouth every 6 hours as needed. Active Cholecalcifero l 4000 units tablet cholecalciferol (vitamin D3) 4,000 unit tablet Take by oral route. Activ e cycloSPORINE (RESTASIS) 0.05 % ophthalmic emulsion Restasis 0.05 % eye drops in a dropperette Active felodipine (PLENDIL) 10 MG 24 hr tablet felodipine ER 10 mg tablet,extended release 24 hr Active prasugrel (EFFIENT) 10 MG tablet Effient 10 mg tablet Active simvastatin (ZOCOR) 80 MG tablet simvastatin 80 mg tablet Active Suvorexant (BELSOMRA) 15 MG tablet Belsomra 15 mg tablet Active valsartan (DIOVAN) 40 MG tablet valsartan 40 mg tablet Active Active Problems Problem Noted Date Diagnosed Date Dyspnea on exertion 07/08/2018 Carotid bruit 04/06/2017 Fatigue 04/06/2017 History of claudication 04/06/2017 History of myocardial infarction 04/06/2017 Obesity 04/06/2017 Polycythemia 04/06/2017 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 0 12/25/2016 Stented coronary artery 10/13/2016 Overview (09/22/2018): Overview: H/O heart artery stent Family History Medical History Relation Comments Stroke Father Coronary artery disease Mother Coronary artery disease Son Relation Status Comments Father Mother Son Social History Tobacco Use Types Packs/Day Years Used Date Smoking Tobacco: Former Smokeless Tobacco: Never Alcohol Use Standard Drinks/Week Comments Yes 0 (1 standard drink = 0.6 oz pur e alcohol) Comments Unknown Sex and Gender Information Value Date Recorded Sex Assigned at Not on file Legal Sex Female 8:56 AM MDT Gender Identity Not on file Sexual Orientation Not on file Last Filed Vital Signs Vital Sign Reading Time Taken Comments Blood Pressure 132/70 11/25/2018 2:53 PM CDT Pulse - - Temperature 36.3 C (97.3 F) 11/25/2018 2:53 PM CDT Respiratory Rate - - Oxygen Saturation - - Inhaled Oxygen Concentration - - Weight 98 kg (216 lb) 11/25/2018 2:53 PM CDT Height 172.7 cm (5' 8) 11/25/2018 2:53 PM CDT Body Mass Index 32.84 11/25/2018 2:53 PM CDT Plan of Treatment Health Maintenance Due Date Last Done Comments Pneumococcal PPSV23/PCV13 65 + Years / Low and Medium Risk (1 of 2 - PCV) 12/22/1997 Influenza Vaccine (#1) 2025 Insurance [employer] Care Teams Hairspring Assembler Relationship Specialty Start Date End Date Shashank Allen MD [id number] [facility] [address] [place] [id number] PCP - General Internal Medicine 09/23/18
--- OUTSIDE RECORDS SUMMARY | 2025-03-18 17:29 | XMS_ITS | Clinical Summary ---
Author Organization [facility] Address [facility] [place] [address] Care Team Providers Care Head Tennis Coach Name Role Phone Shashank Allen MD Primary Care Provider [phone] Source Comments [facility],non-owned Affiliates and Associated Physician Practices is amultiple site organization consisting of ambulatory clinics and hospital sitesin [place], [place], [place] and [place]. This disclosure is being madepursuant to the Care Everywhere program and may not contain all information available regarding this patient. Last updated 18.[employer] Allergies No known active allergies Medications * Be aware that medications may not be up to date on this document. Alwaysverify current medications with the patient. atorvastatin (Lipitor) 80 MG tablet Take 1 (one) tablet by mouth once daily 11/30/2023 Active calcium carbonate (Caltrate) 600 MG tablet Take 1 (one) tablet by mouth 2 times daily Active carvedilol (Coreg) 3.125 MG tablet Take 1 (one) tablet by mouth 2 times daily 12/17/2023 Active clobetasol (Temovate) 0.05 % cream Apply to affected area as needed (as needed) Active clopidogrel (plaVIX) 75 MG tablet Take 1 (one) tablet by mouth once daily 09/03/2023 Active escitalopram (Lexapro) 10 MG tablet Take 1 (one) tablet by mouth once daily Active lisinopril (Prinivil; Zestril) 20 MG tablet Take 1.5 (one and one-half) tablets by mouth once daily Active Multiple Vitamin (Daily Vites) TABS Take 1 (one) tablet by mouth once daily Active fish oil/omega-3 fatty acids (Promega;Cardi- [place] 3) 1000 MG capsule Take 1 (one) capsule by mouth 2 times daily Active oxyBUTYnin (Ditropan) 5 MG tablet Take 1 (one) tablet by mouth 2 times daily Active Social History Tobacco Use Types Packs/Day Years Used Date Smoking Tobacco: Former Cigarettes Smokeless Tobacco: Never Tobacco Cessation:Counseling Given: Not Answered Alcohol Use Standard Drinks/Week Comments Yes 2 (1 standard drink = 0.6 oz pur e alcohol) PHQ-2 Answer Date Recorded Patient Health Questionnaire-2 Score 0 12/26/2023 Comments No Sex and Gender Information Value Date Recorded Sex Assigned at Not on file Legal Sex Female 2:54 PM ORDER 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 Gender Identity Not on file Sexual Orientation Not on file Last Filed Vital Signs Vital Sign Reading Time Taken Comments Blood Pressure 134/85 12/26/2023 8:07 AM CDT Pulse 56 12/26/2023 8:07 AM CDT Temperature 36.6 C (97.8 F) 12/26/2023 8:07 AM CDT Respiratory Rate - - Oxygen Saturation 92% 12/26/2023 8:07 AM CDT Inhaled Oxygen Concentration - - Weight 100.2 kg (221 lb) 12/26/2023 8:07 AM CDT Height 167.6 cm (5' 6) 12/26/2023 8:07 AM CDT Body Mass Index 35.67 12/26/2023 8:07 AM CDT Plan of Treatment Health Maintenance Due Date Last Done Comments BONE DENSITY TESTING 1945 MEDICARE AWV 12 MONTHS 1945 DTAP/TDAP/TD VACCINES (1 - Tdap) 12/22/1966 PNEUMOCOCCAL VACCINE 50+ (1 of 1 - PCV) 12/22/1997 ZOSTER VACCINE (1 of 2) 12/22/1997 Respiratory Syncytial Virus (RSV) Vaccine Pt: or over 60 yrs (1 - 1-dose 75+ series) 12/22/2022 DEPRESSION SCREENING 05/21/2024 12/26/2023 COVID-19 VACCINE (1 - 2023-2 5 season) 2025 INFLUENZA VACCINE (#1) 2025 HEPATITIS C SCREENING Completed 12/26/2023 HEPATITIS B VACCINE Aged Out No longe r eligible based on patient's age to complete this topic HIB VACCINE Aged Out No longer eligi ble based on patient's age to complete this topic HPV VACCINE Aged Out No longer eligi ble based on patient's age to complete this topic MENINGOCOCCAL (Group B) VACC INE SHARED DECISION-MAKING Aged Out No longer eligibl e based on patient's age to complete this topic MENINGOCOCCAL GROUPS A/C/Y/W VACCINE Aged Out No longer eligible b ased on patient's age to complete this topic Procedures Procedure Name Priority Date/Time Associated Diagnosis Comments HEPATITIS C AB W/RFLX TO HCV RNA QN PCR Routine 12/26/2023 12:14 PM CDT Fatigue, unspecified type Osteoarthritis, unspecified osteoarthritis type, unspecified site from Last 3 Months or Most Recently Relevant to Health Maintenance Results * HEPATITIS C AB W/RFLX TO HCV RNA QN PCR (12/26/2023 12:14 PM CDT) Hepatitis C Antibody NON-REACTI VE NON-REACT [facility] Comment: HCV antibody was non-reactive. There is no laboratory evidence of HCV infection. In most cases, no further action is required. However, if recent HCV exposure is suspected, a test for HCV RNA (test code 68432) is suggested. For additional information please refer to http://education.[facility]/faq/WJH79v6 (This link is being provided for informational/ educational purposes only.) Test Performed at: [facility] [address] [place] [address] MP MOTLEY MD Blood BLOOD SPECIMEN / Unknown 12/26/2023 12:14 PM CDT 12/26/2023 12:14 PM CDT us Naty West MD LAB - CHEMISTRY ORDERA BLES Final Result [facility] [id number] [place] [address] from Last 3 Months or Most Recently Relevant to Health Maintenance Insurance [facility] MEDICARE [employer] MEDICARE Care Teams Head Tennis Coach Relationship Specialty Start Date End Date Shashank Allen MD [address] [place] [address] PCP - General 04/21/20
--- OUTSIDE RECORDS SUMMARY | 2025-03-18 17:29 | XMS_ITS | Encounter Summary ---
Author Organization [facility] Address [address] [place] [address] Care Team Providers Care Assistant Professor Of Spanish Name Role Phone Shashank Allen MD Primary Care Provider Encounter Details Date Type Department Care Team (Late st Contact Info) Description 09/25/2016 Orders Only [facility] ProviderKal MD [address] [place] [id number] Social History Tobacco Use Types Packs/Day Years Used Date Smoking Tobacco: Former Cigarettes Q uit: 05/21/1972 Alcohol Use Standard Drinks/Week Comments Yes 0 (1 standard drink = 0.6 oz pur e alcohol) Comments Unknown Sex and Gender Information Value Date Recorded Sex Assigned at Not on file Legal Sex 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 Historical Provider [facility] AJ DELGADILLO Final Result documented in this encounter Visit Diagnoses Not on filedocumented in this encounter Care Teams Assistant Professor Of Spanish Relationship Specialty Start Date End Date Shashank Allen MD [address] [place] [address] PCP - General 08/21/16 documented as of this encounter
--- OUTSIDE RECORDS SUMMARY | 2025-03-18 17:29 | XMS_ITS | Clinical Summary ---
Author Organization [facility] Address [address] [place] [address] Care Team Providers Care Theater Company Producer Name Role Phone Unavailable Primary Care Provider Unavailabl e Social History Tobacco Use Types Packs/Day Years Used Date Smoking Tobacco: Never Assessed Comments Unknown Sex and Gender Information Value Date Recorded Sex Assigned at Not on file Legal Sex Female 5:15 PM CDT Gender Identity Not on file Sexual Orientation Not on file Last Filed Vital Signs Vital Sign Reading Time Taken Comments Blood Pressure 124/75 09/04/2012 7:32 AM CDT Pulse 83 09/04/2012 7:32 AM CDT Temperature - - Respiratory Rate - - Oxygen Saturation - - Inhaled Oxygen Concentration - - Weight 99.3 kg (219 lb) 09/04/2012 7:32 AM CDT Height 172.7 cm (5' 8) 09/04/2012 7:32 AM CDT Body Mass Index 33.3 09/04/2012 7:32 AM CDT Plan of Treatment Health Maintenance Due Date Last Done Comments Hepatitis C 12/22/1965 Pneumococcal Vaccine: 50+ Ye ars (1 of 1 - PCV) 12/22/1997 Zoster Vaccines (1 of 2) 12/22/1997 Dexa Scan (General) 12/22/2012 DTaP, Tdap and Td Vaccines ( 2 - Td or Tdap) 03/06/2022 03/06/2012 RSV Immunization or 60+ Years (1 - 1-dose 75+ series) 12/22/2022 COVID-19 Vaccine ( - 2024-2 6 season) 2025 Influenza Adult (#1) 2025 03/06/2012 Hepatitis A Vaccines Aged Out No long er eligible based on patient's age to complete this topic Meningococcal B Vaccine Aged Out No l onger eligible based on patient's age to complete this topic Meningococcal Vaccine Aged Out No anselmo steve eligible based on patient's age to complete this topic RSV Immunizations Under 20 Months Aged Out No longer eligible based on patient's age to complete this topic
--- OUTSIDE RECORDS SUMMARY | 2025-03-18 17:30 | XMS_ITS | Clinical Summary ---
Author Organization [facility] [address] Address [address] [place] [address] Care Team Providers Care Organ Assembler Name Role Phone Shashank Allen MD Primary Care Provider Allergies No known active allergies Medications calcium carbonate-vit D3-min 600 mg calcium- 400 unit tablet 1 daily 0 0 4 Active oxybutynin (DITROPAN) 5 mg tablet take 1 tablet by oral route every day 0 0 4 Active omega-3 fatty acids-vitamin E (FISH OIL) 1,000 mg capsule take once daily 0 0 5 Active multivitamin tablet tablet take once daily 0 0 5 Active Additional Information Patient taking differently: 1 tablet oral Daily with lunch, Reported on 05/16/2022 traZODone (DESYREL) 50 mg tablet Take 2 tablets (100 mg total) by mouth nightly 8 Active lisinopriL (PRINIVIL,ZESTR IL) 20 mg tablet Take 1.5 tablets (30 mg total) by mouth daily with lunch 2 Active sertraline (ZOLOFT) 25 mg tablet Take 1 tablet (25 mg total) by mouth daily 3 Active nitroglycerin (NITROSTAT) 0.4 mg SL tabletIndicatio ns: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 25 tablet 3 4 Active clopidogreL (PLAVIX) 75 mg tablet TAKE 1 TABLET BY MOUTH EVERY DAY 90 tablet 5 Active carvediloL (COREG) 3.125 mg tablet TAKE 1 TABLET BY MOUTH TWICE A DAY 180 tablet 5 Active atorvastatin (LIPITOR) 80 mg tablet Take 1 tablet (80 mg total) by mouth daily 90 tablet 5 Active Active Problems Problem Noted Date Diagnosed Date Shoulder joint pain 05/16/2022 Primary localized osteoarthritis of pelvic regio n and thigh 05/16/2022 Lichen sclerosus et atrophicus 05/16/2022 Incomplete tear of rotator cuff 05/16/2022 Fracture of forearm 05/16/2022 Closed fracture of distal end of radius 05/16/20 22 Breast lump 05/16/2022 Chest pain 05/08/2022 Overview (05/08/2022): Added automatically from request for surgery [id number] Other hyperlipidemia 11/08/2020 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 ([facility]) 06/16/2019 Hypertensive heart disease without heart failure 06/16/2019 Dyspnea on exertion 07/08/2018 History of myocardial infarction 04/06/2017 History of claudication 04/06/2017 Carotid bruit 04/06/2017 Fatigue 04/06/2017 Obesity 04/06/2017 Polycythemia 04/06/2017 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 0 12/25/2016 Stented coronary artery 10/13/2016 Overview (05/16/2022): H/O heart artery stent Overview: H/O heart artery stent Resolved Problems Problem Noted Date Diagnosed Date Resolved Date Preoperative cardiovascular examination 06/16/2019 05/09/2021 Surgical History Surgery Date Site/Laterality Comments OTHER SURGICAL HISTORY Removal cyst from face CORONARY ANGIOPLASTY WITH STENT PLACEMENT JOINT REPLACEMENT 05/21/2019 - 05/20/2020 Right KRISTOFER EYE SURGERY Bilateral cataracts COLONOSCOPY Medical History Medical History Date Comments History of acute inferior wall SC 04/06/2017 Hx of intermittent claudication 04/06/2017 Bilateral carotid bruits 04/06/2017 OAB (overactive bladder) Hyperlipidemia HU (dyspnea on exertion) Hypertensive heart disease without heart failure 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 Sleep apnea Miscarriage x1 Family History Medical History Relation Name Comments Stroke Father Stroke; Cause o f : Stroke Heart attack Mother Myocardial Infa rction; Cause of : Myocardial Infarction Heart attack Son 2 Myocardial Infa rction; Cause of : Myocardial Infarction Relation Name Status Comments Father (Age 65) Mother (Age 78) Son 1 (Age 35) Son 2 Social History Tobacco Use Types Packs/Day Years Used Date Smoking Tobacco: Former Cigarettes 1 10 1 1976 Smokeless Tobacco: Never Tobacco Cessation:Counseling Given: Not Answered Alcohol Use Standard Drinks/Week Comments Yes 0 (1 standard drink = 0.6 oz pur e alcohol) AUDIT-C Answer Date Recorded Q1: How often do you have a drink containing alcohol? Never 05/17/2022 Q2: How many drinks containi ng alcohol do you have on a typical day when you are drinking? Patient does not drink Q3: How often do you have si x or more drinks on one occasion? Never 05/17/2022 Personal Safety Answer Date Recorded Getting School Help Needed Not on file 05/21 Comments No Sex and Gender Information Value Date Recorded Sex Assigned at Not on file Legal Sex Female 3:59 AM SPECIAL INVESTIGATION UNIT INVESTIGATOR Gender Identity Not on file Sexual Orientation Not on file Obstetrics History Last Filed Vital Signs Vital Sign Reading Time Taken Comments Blood Pressure 110/60 01/07/2024 9:58 AM CDT Pulse 65 01/07/2024 9:58 AM CDT Temperature 36.8 C (98.2 F) 05/17/2022 7:55 AM SPECIAL INVESTIGATION UNIT INVESTIGATOR Respiratory Rate 16 05/17/2022 7:55 AM SPECIAL INVESTIGATION UNIT INVESTIGATOR Oxygen Saturation 95% 01/07/2024 9:58 AM CDT Inhaled Oxygen Concentration - - Weight 97.3 kg (214 lb 6.4 oz) 01/07/2024 9:58 A M CDT Height 170.2 cm (5' 7) 01/07/2024 9:58 AM CDT Body Mass Index 33.58 01/07/2024 9:58 AM CDT Plan of Treatment Health Maintenance Due Date Last Done Comments Depression Screening 1945 Hepatitis C Screening 1945 Osteoporosis Screening-Bone Density Scan 1945 DTaP/Tdap/Td Vaccine (1 - Tdap) 12/22/1958 Hepatitis B Screening 12/22/1965 Well Visit 65+ 12/22/2012 Pneumococcal vaccine 65+ (2 of 2 - PCV) 03/18/2014 03/18/2013 Zoster Vaccine (2 of 3) 04/16/2018 02/19/2018 Fall Risk Assessment 05/17/2023 05/17/2022 Influenza Vaccine (#1) 2025 8, 03/20/2014, 03/18/2013 Medical Devices Implanted Type Area Broadband Technician Device Identifier Shelf Expiration Date Model / Serial / Lot SightCine Angio-Seal Vip 6fr Closere Device [id number] - [id number] Implanted:Qty: 1 on 05/17/2022 by Rashad Romero MD at [facility] [employer] 01/18/2023 [id number] / / [id number] Insurance [employer] Care Teams Organ Assembler Relationship Specialty Start Date End Date Shashank Allen MD [address] [facility] [address] [place] [address] PCP - General 08/21/16
--- OUTSIDE RECORDS SUMMARY | 2025-03-18 17:30 | XMS_ITS | Clinical Summary ---
Author Organization [facility] Address [address] [place] [address] Care Team Providers Care Journeyman Meat Cutter Name Role Phone Shashank Allen MD Primary Care Provider [phone] Allergies No known active allergies Medications lisinopril (PRINIVIL) 10 mg tablet Take 10 mg by mouth daily. Active oxybutynin chloride (DITROPAN) 5 mg tablet Take 5 mg by mouth daily. Active aspirin (ECOTRIN EC) 81 mg Tablet, Delayed Release (E.C.) Take 81 mg by mouth daily. Active multivitamin (DAILY-CHRISTELLE) tablet Take 1 Tablet by mouth daily. Active omega-3 fatty acids-fish oil 300-1,000 mg Capsule Take 1 Capsule by mouth 2 times daily. Active calcium as carbonate (CALTRATE) 1,500 mg (600 mg elemental) Tablet Take 600 mg by mouth 2 times daily. Active traMADol (ULTRAM) 50 mg tablet Take 50 mg by mouth every 6 hours as needed for Pain. Active fluticasone (FLONASE) 50 mcg/spray [place], Suspension Administer 2 Sprays in each nostril daily. Active diclofenac sodium (VOLTAREN) 1 % gel 8 Active sertraline (ZOLOFT) 50 mg tabletIndicatio ns:pt taking 1 and 1/2 daily Take 50 mg by mouth daily. Active fexofenadine (PATO) 180 mg tablet Take 180 mg by mouth daily. Active gabapentin (NEURONTIN) 100 mg capsule 1 Active Docusate Sodium 100 mg Tablet Take 100 mg by mouth. Active atorvastatin (LIPITOR) 80 mg tablet TAKE 1 TABLET BY MOUTH EVERY DAY 1 Active carvediloL (COREG) 3.125 mg tablet Take 3.125 mg by mouth. 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 0 12/25/2016 Family History Medical History Relation Name Comments No Known Problems Brother Heart Disease Father Heart Disease Mother Respiratory Disease Sister 1 Respiratory Disease Sister 2 Relation Name Status Comments Brother Alive Father Mother Sister 1 Alive Sister 2 Alive Social History Tobacco Use Types Packs/Day Years Used Date Smoking Tobacco: Former Cigarettes 1 10 0 12/25/1965 - 12/26/1975 Alcohol Use Standard Drinks/Week Comments Yes 14 (1 standard drink = 0.6 oz pu re alcohol) Comments No Sex and Gender Information Value Date Recorded Sex Assigned at Not on file Legal Sex Female 9:45 AM CDT Gender Identity Not on file Sexual Orientation Not on file Last Filed Vital Signs Vital Sign Reading Time Taken Comments Blood Pressure 110/62 10/28/2020 11:55 AM CDT Pulse 73 10/28/2020 11:55 AM CDT Temperature 36.8 C (98.3 F) 10/28/2020 11:55 AM CDT Respiratory Rate 18 10/10/2017 2:07 PM CDT Oxygen Saturation 94% 10/28/2020 11:55 AM CDT Inhaled Oxygen Concentration - - Weight 95.7 kg (211 lb) 10/28/2020 11:55 AM CDT Height 170.2 cm (5' 7) 10/28/2020 11:55 AM CDT Body Mass Index 33.05 10/28/2020 11:55 AM CDT Plan of Treatment Health Maintenance Due Date Last Done Comments DTAP/TDAP/TD VACCINES (1 - Tdap) 12/22/1966 PNEUMOCOCCAL VACCINE 50+ YEARS (1 of 1 - PCV) 12/22/18 98 ZOSTER VACCINE (1 of 2) 12/22/1997 OSTEOPOROSIS SCREENING 12/22/2012 RSV VACCINE (60+ or ) (1 - 1-dose 75+ series) 12/22/2022 INFLUENZA VACCINE (#1) 2024 Insurance [facility] Care Teams Journeyman Meat Cutter Relationship Specialty Start Date End Date Shashank Allen MD [address] [facility] [address] [place] [address] PCP - General Family Practice 12/25/16
== END 2025-03-18 15:26 | disposition home or self-care (01) ==
LOC: ANHFOHIMG 15:27
PROVIDERS: PCP Family Medicine; Visit Provider Physician Assistant
DX: Z12.31 Encounter for screening mammogram for malignant neoplasm of breast (principal)
CPT/HCPCS: 77063; 77067